=== PATIENT | female | born 1960 | race Asian ===

== ENCOUNTER → 2018-01-30 12:25 | Outpatient (CLI) | payer OTHER, SELFPAY ==
[2018-01-30 13:04] LABS: Add Manual Diff / Slide Review NO; Basophils Percent Auto 0.3 % (0-2); Eosinophils Percent Auto 0.7 % (2-4); Hematocrit 38.4 % (36-46); Hemoglobin 12.6 g/dL (12.0-16.0); Lymphocytes Percent Auto 43.5 % (25-40); Mean Corpuscular HGB Conc 32.9 % (30-36); Mean Corpuscular Hemoglobin 27.6 PG (26-34); Mean Corpuscular Volume 83.8 fL (80-100); Monocytes Percent Auto 6.3 % (3-14); Neutrophils Absolute Auto 3200 /uL (3000-5900); Neutrophils Percent Auto 49.2 % (50-75); Platelet Count 249 X10^3/uL (150-400); Red Blood Cell Count 4.58 X10^6/uL (4.0-5.2); Red Cell Distribution Width 13.3 % (11.6-14.8); White Blood Cell Count 6.5 X10^3/uL (4.5-11.0)
[2018-01-30 13:16] LABS: Hemoglobin A1C% w Est Avg Glu 8.2 % (4.0-6.0)
[2018-01-30 13:27] LABS: Alanine Aminotransferase 57 IU/L (9-52); Albumin 4.4 g/dL (3.5-5.0); Albumin Globulin Ratio 1.2 (1.0-2.8); Alkaline Phosphatase 76 U/L (38-126); Aspartate Aminotransferase 33 IU/L (14-36); BUN Creatinine Ratio 21.7 (6-22); Bilirubin Total 0.5 mg/dL (0.2-1.3); Blood Urea Nitrogen 13 mg/dL (7-17); Calcium 9.2 mg/dL (8.4-10.2); Carbon Dioxide 29 mmol/L (22-32); Chloride 102 mmol/L (98-107); Cholesterol 186 mg/dL (140-199); Estimated Glomerular Filt Rate > 60.0 mL/min (>60); Globulin 3.7 g/dL (1.7-4.1); Glucose 116 mg/dL (70-100); HDL Cholesterol 39 mg/dL (40-60); HEMOLYSIS < 15 (0-50); LDL Cholesterol Calculated 127 mg/dL (<100); Potassium 3.9 mmol/L (3.4-5.1); Sodium 141 mmol/L (137-145); Total Protein 8.1 g/dL (6.3-8.2); Triglycerides 102 mg/dL (35-150)
== END ==
PROVIDERS: PCP Internal Medicine; Visit Provider Internal Medicine
DX: E11.9 Type 2 diabetes mellitus without complications (principal); E78.00 Pure hypercholesterolemia, unspecified
CPT/HCPCS: 36415; 80053; 80061; 83036; 85025

== ENCOUNTER → 2018-02-06 09:31 | Outpatient (CLI) | payer OTHER, SELFPAY ==
--- NOTE | 2018-02-06 | DI.ECHO.S_ITS ---
[place] [facility] +---------+ : : [address] : : : : [id number] : : : : Phone: [phone]+ Echocardiogram Report + + :Name: DENISE GOMEZ Study Date: 02/06/2018 Height: 64 in : :[facility] Exam Location: IS Weight: 160 lb : : Gender: Female BSA: 1.8 m2 : :: 1960 Age: 57 yrs BP: 158/75 mmHg: :Reason For Study: AORTIC STENOSIS : : Performed By: Ephraim Nation : :Referring: PRABHU URIAS : + + Interpretation Summary The left ventricle is normal in size. The ejection fraction is estimated to be 60-65%. There has been no significant change in LV EF since the previous study. The right ventricle is normal in size and function. The aortic valve is mildly calcified. Leaflet mobility is mild to moderately reduced. The peak aortic velocity is 2.78 m/sec. The peak aortic velocity on the previous exam was 2.7 m/sec. The aortic valve mean gradient is 19 mmHg. The aortic valve area is 1.3 centimeters squared by planimetry. There is mild to moderate aortic stenosis. There is mild aortic regurgitation. Compared to the prior echo study, there has been no change in the severity of aortic regurgitation. Procedure: A two-dimensional transthoracic echocardiogram with color flow and Doppler was performed. The study quality was technically adequate. Comparison is made with the echocardiogram of 03/21/17. The patient was in normal sinus rhythm during the exam. Left Ventricle: The left ventricle is normal in size. There is normal left ventricular wall thickness. There is no thrombus. The ejection fraction is estimated to be 60-65%. There has been no significant change since the previous study. There are no focal wall motion abnormalities. MV E/A: 0.90 Med Peak E' Viral: 5.5 cm/sec E/E' med: 16.3. Right Ventricle: The right ventricle is normal in size and function. Atria: Both atria are normal in size. Both atria have remained unchanged in size since the prior echo exam. The interatrial septum is intact with no evidence for an atrial septal defect. Mitral Valve: There is mild to moderate mitral annular calcification. No significant mitral valve stenosis. There is trace mitral regurgitation. Aortic Valve: The aortic valve is trileaflet. The aortic valve is mildly calcified. Leaflet mobility is mild to moderately reduced. The peak aortic velocity is 2.78 m/sec. The aortic valve mean gradient is 19 mmHg. The calculated aortic valve area is 1.2 cm2. The aortic valve area is 1.3 centimeters squared by planimetry. There is mild to moderate aortic stenosis. The peak aortic velocity on the previous exam was 2.7 m/sec. There has been no significant change since the previous study. There is mild aortic regurgitation. Compared to the prior echo study, there has been no change in the severity of aortic regurgitation. Tricuspid Valve: The tricuspid valve is normal in structure and function. There is a trace or physiologic amount of tricuspid regurgitation. Pulmonary artery pressures cannot be estimated because of the lack of a measurable TR jet velocity. Pulmonic Valve: The pulmonic valve is normal in structure and function. There is trace pulmonic regurgitation. Great Vessels: The aortic root is normal size. The ascending aorta is mildly enlarged. The pulmonary artery is normal size. The IVC is of normal diameter and collapses greater than 50% with a sniff. This suggests a low right atrial pressure of 3 mm Hg. Pericardium/ Pleura There is no pericardial effusion. There is no pleural effusion. MMode/2D Measurements & Calculations LVIDd: 4.0 cm LVOT diam: 2.0 cm LVIDs: 2.8 cm Ao root diam: 2.7 cm FS: 31.3 % Aortic Jxn: 2.1 cm EPSS: 0.36 cm asc Aorta Diam: 3.6 cm IVSd: 0.86 cm Ao Arch Diam (Prox Trans): 2.4 cm LVPWd: 0.85 cm LV agee. diameter/BSA (cm/m^2): 2.2 LV sys. diameter/BSA (cm/m^2): 1.5 LA dimension: 3.9 cm RA long axis: 4.3 cm LA A2 area: 16.8 cm2 RA area: 12.8 cm2 LA A4 area: 19.5 cm2 RA vol: 32.3 ml LA length (vol): 5.0 cm RA : 18.2 ml/m2 LA vol: 55.3 ml IVC diam: 1.5 cm LA vol index: 31.1 ml/m2 SUKHJINDER (plan): 1.3 cm2 Doppler Measurements & Calculations Ao V2 max: 278.4 cm/sec LVOT Max Viral: 88.4 cm/sec Ao V2 mean: 211.8 cm/sec LV V1 max P.1 mmHg Ao max P.0 mmHg LV V1 VTI: 23.6 cm Ao mean P.0 mmHg SUKHJNIDER(I,D): 1.2 cm2 Ao V2 VTI: 62.2 cm SUKHJINDER(V,D): 1.00 cm2 sev ratio: 0.38 SUKHJINDER indexed to BSA (cm^2/m^2): 0.67 AI P1/2t: 704.5 msec AI dec slope: 189.3 cm/sec2 MV E max viral: 89.3 cm/sec PA V2 max: 84.7 cm/sec MV A max viral: 99.0 cm/sec PA V2 mean: 57.3 cm/sec MV E/A: 0.90 PA mean P.5 mmHg Med Peak E' Viral: 5.5 cm/sec PA pr(Accel): 26.6 mmHg E/E' med: 16.3 PA Accel Time: 0.11 sec MV dec time: 0.19 sec Pulm A Revs Viral: 22.1 cm/sec Reading Physician:PM
== END ==
PROVIDERS: PCP Internal Medicine; Visit Provider Internal Medicine
DX: I35.0 Nonrheumatic aortic (valve) stenosis (principal)
CPT/HCPCS: 93306

== ENCOUNTER → 2018-03-05 13:49 | Outpatient (CLI) | payer OTHER, SELFPAY ==
--- NOTE | 2018-03-05 14:01 | DI.MG.S_ITS ---
Patient Name: DENISE GOMEZ date: 1960 Sex: F Attending Physician: Boni Indications: Date: 03/05/2018 14:01 At the request of: MILENA VASQUEZ Procedure: MM screening mammo BI BILATERAL DIGITAL SCREENING MAMMOGRAM 3D/2D WITH CAD: 03/05/2018 CLINICAL: Routine screening. Comparison is made to exams dated: 02/03/2017 mammogram, 12/22/2015 mammogram, and 11/05/2014 mammogram - [facility]. There are scattered fibroglandular elements in both breasts. Current study was also evaluated with a Computer Aided Detection (CAD) system. No significant masses, calcifications, or other findings are seen in either breast. IMPRESSION: NEGATIVE There is no mammographic evidence of malignancy. A 1 year screening mammogram is recommended. This exam was interpreted at Station ID: [id number]. NOTE: For mammograms, a report in lay terms will be sent to the patient. Approximately 15% of breast malignancies will not be visualized mammographically. In the management of a palpable breast mass, a negative mammogram must not discourage biopsy of a clinically suspicious lesion. Electronically Signed By: Angel sosa/keyla:03/05/2018 20:01:22 copy to: Bharathi Phillips letter sent: Normal Exam ACR BI-RADS Category 1: Negative 3341F
== END ==
PROVIDERS: PCP Internal Medicine; Visit Provider Family Medicine
DX: Z12.31 Encounter for screening mammogram for malignant neoplasm of breast (principal)
CPT/HCPCS: 77063; 77067

== ENCOUNTER → 2018-05-02 16:43 | Outpatient (CLI) | payer OTHER, SELFPAY | PROVIDERS: PCP Internal Medicine; Visit Provider Internal Medicine | DX: E11.9 Type 2 diabetes mellitus without complications (principal) | CPT/HCPCS: 36415; 83036 ==

== ENCOUNTER → 2018-06-01 08:00 | Outpatient (CLI) | payer OTHER, SELFPAY | PROVIDERS: PCP Internal Medicine | DX: Z23 Encounter for immunization (principal) | CPT/HCPCS: 90471; 90686 ==

== ENCOUNTER → 2018-07-20 07:31 | Outpatient (CLI) | payer OTHER, SELFPAY | PROVIDERS: PCP Internal Medicine; Visit Provider Internal Medicine | DX: E11.9 Type 2 diabetes mellitus without complications (principal) ==

== ENCOUNTER → 2018-09-13 09:32 | Outpatient (CLI) | payer OTHER, SELFPAY ==
--- NOTE | 2018-09-13 15:25 | P.PCN_ITS ---
Cardiac Stress Test Report Referral & Results Date Patient Seen: 09/13/18 Requesting provider: Jerrell Guerrero Indication: Abnormal regular stress test Rest ECG: Unremarkable Procedure Note: Today following both written and verbal informed consent the patient was exercised according to a standard Mario protocol patient went for a total of 9 min 4 sec achieving a maximum heart rate of 160 maximum systolic blood pressure of 158. This is approximately 10.1 METS. Exercise was terminated at this point because of targets were met. Patient was also given Cardiolite through a previously started Hep-Lock IV by the nuclear weapons mechanical specialist approximately 1 minute prior to the cessation of exercise. With exercise patient developed T-wave inversion in lead [address] segment depression that was flat downsloping in the inferior leads in leads V4 through V6 that maximized about 2 mm in recovery these became frankly downsloping ST segment depressions as the depression resolved slowly This was all asymptomatic Functional aerobic impairment rated-20% on the active scale Normal heart rate blood pressure response to exercise Impression: Ischemic changes as above in inferior distribution. Presumably this is why this was repeated and ordered with perfusion imaging as well. Please see perfusion imaging report which will be a separate report for details regarding ischemia Excellent exercise capacity Please note: Actual ECG tracings can be found in the PACS system.
--- NOTE | 2018-09-13 18:16 | DI.NM.S_ITS ---
DATE OF SERVICE: 09/13/2018 PROCEDURE: Exercise perfusion study. INDICATIONS: Exertional shortness of breath, noncritical aortic stenosis, hypertension, hyperlipidemia, diabetes mellitus. RADIOPHARMACEUTICAL: 24.6 mCi technetium-99m Myoview IV was injected at stress and 13.5 mCi technetium-99m Myoview IV was injected at rest. CARDIAC STRESS: Patient underwent exercise perfusion study under the supervision of an attending staff using standard Mario protocol. She walked on Mario protocol for 9 minutes 04 seconds, achieved 98% of target heart rate and functional aerobic impairment -20%. Had shortness of breath. No chest pain. Baseline EKG revealed sinus rhythm. During stress, patient had 2-3 mm horizontal as well as downsloping ST depression in inferior leads and lead V4 to V6, and about 2-mm ST elevation in aVR which lasted more than 3 minutes in recovery. No significant arrhythmias. RAW DATA: There was adequate myocardial uptake. Patient's weight is 149 pounds. GATED STUDY: Stress LV ejection fraction 84% and resting LV ejection fraction 77%. I don't see any obvious wall motion abnormalities. Resting end-diastolic volume is 79 mL. No transient ischemic dilatation. TID ratio is 0.70, which is within normal limits. Lung/heart ratio is 0.37, which is within normal limits. MYOCARDIAL PERFUSION SCAN: Stress supine and resting supine images revealed small-sized mildly decreased perfusion of distal septum and apex which got completely resolved during prone images suggestive of tissue attenuation artifact. Prone images revealed normal myocardial perfusion. CONCLUSION: No obvious ischemia infarction pattern on perfusion scan. Prone images revealed normal myocardial perfusion. There was evidence of tissue attenuation artifact which got resolved during prone images. However, exercise EKG revealed significant ST depression, up to 2-3 mm in inferior leads and leads V4 to V6 and about 2-mm ST elevation in aVR which lasted more than 3 minutes in recovery. Patient had good exercise tolerance. Walked on Mario her call for 9 minutes 04 seconds. Functional aerobic impairment -20%. Achieved 10.1 METs of workload. Patient has abnormal EKG changes. Sometimes balanced ischemia and can cause normal myocardial perfusion. However, left ventricular (LV) function is preserved. No significant wall motion abnormalities. If clinical suspicion for coronary artery disease is high, would recommend obtaining CT coronary angiogram or left heart catheterization. Findings discussed with Dr. Guerrero. Ana Cevallos - YOUTH PASTOR/fn/ doc#: [id number]/job#: [id number] dd: 09/13/2018 17:00:00 dt: 09/13/2018 17:49:00 DICTATING MD/COPIES TO: Davon Adrian MD COPIES MNE: NEAL
== END ==
PROVIDERS: PCP Internal Medicine; Visit Provider Internal Medicine Cardiovascular Disease
DX: R06.02 Shortness of breath (principal); R94.39 Abnormal result of other cardiovascular function study; R06.09 Other forms of dyspnea; I35.0 Nonrheumatic aortic (valve) stenosis; E11.9 Type 2 diabetes mellitus without complications; E78.5 Hyperlipidemia, unspecified; I10 Essential (primary) hypertension
CPT/HCPCS: 78452; 93016; 93017; 93018; A9502

== ENCOUNTER 2018-09-29 16:56 | Emergency (ER) | payer OTHER, SELFPAY ==
[2018-09-29 17:03] VITALS: BP 158/85; PULSE 85; RESP 16; TEMP 36.8; O2SAT 99
--- NOTE | 2018-09-29 17:08 | DI.RAD.S_ITS ---
PROCEDURE: XR SACRUM COCCYX MIN 2V INDICATIONS: slip and fall, tailbone pain TECHNIQUE: 3 views of the sacrum and coccyx acquired. COMPARISON: None. FINDINGS: Bones: Cortical irregularity of the lower sacrum (at S5) concerning for fracture, best seen on lateral view. Moderate degenerative changes of the lumbar spine are present. Mild degenerative changes of the bilateral sacroiliac joints is also seen. Soft tissues: Visualized bowel gas pattern is normal. Prominent bilateral pelvic ossification is most consistent with phleboliths. Vascular calcifications are noted. IMPRESSION: Cortical irregularity of the lower sacrum concerning for fracture. Correlation with point tenderness recommended. Dictated by: Angel Rice M.D. on 09/29/2018 at 17:26 Approved by: Angel Rice M.D. on 09/29/2018 at 17:31
--- NOTE | 2018-09-29 18:45 | PC.NURSE ---
Patient asked for time, stepped away from waiting room. Will return shortly.
--- NOTE | 2018-09-29 19:01 | ED.BACK ---
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 She states she bumped her right elbow a little bit as well but this is not bothersome. She states that she did take ibuprofen which helps somewhat, but her low back just above her tailbone has been quite tender all day. It is painful with walking and especially pulling or transferring patients. Painful with sitting on the area. Better with lying on her side. She states that her leg went out from under her when she fell, however she does not have any pain radiating down her legs. She does not have weakness or numbness in her legs. She has been able to urinate normally. No numbness in the groin. She states that her left gluteal area is a little bit sore but not as sore as the low back. She denies any head contusion, LOC, or other injury Related Data Home Medications Medication Instructions Recorded Confirmed CA PANTOTHENATE/FOLIC ACID/VIT 1 tab PO QDAY #0 01/26/12 (MULTIVITAMIN) FLAXSEED (NEW ENERGY) 1 cap PO QDAY #0 01/26/12 OMEGA-3/DHA/EPA/FISH OIL (Fish Oil 1,000 mg PO QDAY #0 01/26/12 1,000 MG Softgel) [CQ10] QDAY #0 01/26/12 aspirin 81 mg PO QDAY #0 01/26/12 atorvastatin [Lipitor] 80 mg PO HS #0 01/26/12 metformin 1,000 mg PO BID #0 01/26/12 telmisartan [Micardis] 20 mg PO QDAY #0 01/26/12 insulin glargine (U- 100) 100 40 unit SUBCUT HS #0 ml 07/20/18 07/20/18 unit/mL subcutaneous solution liraglutide 0.6 mg/0.1 mL (18 mg/3 1.2 mg SUBCUT DAILY ml 07/20/18 07/20/18 mL) subcutaneous pen injector Previous Rx's Medication Instructions Recorded lidocaine [Lidoderm] 2 patch TOP DAILY #30 each 09/29/18 Allergies Allergy/AdvReac Type Severity Reaction Status Date / Time kiwi Allergy Severe zainab Verified 07/20/18 08:25 hydrocodone [HYDROCODONE] Allergy Mild ITCHING Verified 07/20/18 08:25 AND REDNESS penicillamine [PENICILLAMINE] Allergy Unknown Verified 07/20/18 08:25 Review of Systems <Racheal Torres PA-C - Last Filed: 09/29/18 20:39> Review of Systems ROS Unobtainable: All systems reviewed & are unremarkable except as noted in HPI and below PFSH <Racheal Torres PA-C - Last Filed: 09/29/18 20:39> Medical History CAD (coronary artery disease) (Chronic) Diabetes (Chronic) HTN (hypertension) (Chronic) Hyperlipidemia (Chronic) No pertinent family history (Chronic) Surgical History No pertinent past surgical history (Chronic) Family History Other No pertinent family history Social History Smoking Status: Never smoker Family History Other No pertinent family history Social History Smoking Status: Never smoker Exam <CHELA Estrada Last Filed: 09/29/18 20:39> Narrative Exam Narrative: GENERAL APPEARANCE: Patient lying comfortably on her right side, in no distress PULMONARY: Lungs clear to auscultation bilaterally CV: Regular rhythm regular without murmur, normal S1 and S2, no S3 or S4 MUSCULOSKELETAL: No point tenderness over the lumbar spine. Tender over the inferior sacrum where there may be a small amount of edema compared to Full AROM of trunk. No tenderness over the sacrum. Lower extremity strength 5/5 bilateral hip flexors, knee extensors, foot plantar flexion. Negative modified straight leg raise EXTREMITIES: No edema, no cyanosis Initial Vital Signs Initial Vital Signs: Vital Signs Temperature 98.2 F 09/29/18 17:03 Pulse Rate 85 09/29/18 17:03 Respiratory Rate 16 09/29/18 17:03 Blood Pressure 158/85 H 09/29/18 17:03 Pulse Oximetry 99 09/29/18 17:03 <Bowen Solomon DO - Last Filed: 09/29/18 21:19> Initial Vital Signs Initial Vital Signs: Vital Signs Temperature 98.2 F 09/29/18 17:03 Pulse Rate 85 09/29/18 17:03 Respiratory Rate 16 09/29/18 17:03 Blood Pressure 158/85 H 09/29/18 17:03 Pulse Oximetry 99 09/29/18 17:03 Course <HCELA Estrada Last Filed: 09/29/18 20:39> Orders Ordered: ED Orders 09/29/18 17:08 XR sacrum coccyx min 2V Stat Discontinued Medications Oxycodone/Acetaminophen (Endocet 5/325 Prepack) 1 bottle MISC SEEINSTR ONE Stop: 09/29/18 19:48 Last Admin: 09/29/18 20:07 Dose: 1 bottle Vital Signs - 8 hr 09/29/18 17:03 Temperature 98.2 F Pulse Rate 85 Respiratory Rate 16 Blood Pressure 158/85 H Pulse Oximetry 99 <Bowen Solomon DO - Last Filed: 09/29/18 21:19> Orders Ordered: ED Orders 09/29/18 17:08 XR sacrum coccyx min 2V Stat Discontinued Medications Oxycodone/Acetaminophen (Endocet 5/325 Prepack) 1 bottle MISC SEEINSTR ONE Stop: 09/29/18 19:48 Last Admin: 09/29/18 20:07 Dose: 1 bottle Vital Signs - 8 hr 09/29/18 17:03 Temperature 98.2 F Pulse Rate 85 Respiratory Rate 16 Blood Pressure 158/85 H Pulse Oximetry 99 MDM - Back Pain/Injury <CHELA Estrada Last Filed: 09/29/18 20:39> Imaging Data LS spine: Radiologist's impression: Chart Viewer Diagnostics Hx 09/29/18 17:35 Rice,Edward 09/24/18 16:33 Paliwal,Vidhu 09/14/18 08:26 Paliwal,Vidhu 07/20/18 09:53 07/20/18 09:53 07/20/18 09:28 07/20/18 09:20 07/20/18 09:18 05/02/18 17:52 03/09/18 15:53 Dwayne,Edward 03/09/18 15:49 Rice,Edward 02/06/18 17:20 Paliwal,Vidhu 01/30/18 13:28 01/30/18 13:28 01/30/18 13:16 01/30/18 13:06 11/07/17 14:56 Completed 07/28/17 16:45 Completed 04/25/17 14:43 Completed 12/27/16 12:25 Completed 12/27/16 12:25 Completed 12/27/16 12:25 Completed 10/01/16 12:48 Completed 07/04/16 13:12 Completed 03/01/16 07:35 Completed Ana Cevallos 57, F1960 [facility] ER, ED - Main ED: R02 Back Pain/Injury Search Chart NF - Not included in interaction checking zainab ITCHING AND REDNESS ONSET Today 17:03 Ana Cevallos Anaid 57 F 1960 [place] [address] XRay Report Signed Patient: Ana Cevallos LMR#: [id number] : 1960cct:[id number] Age/Sex: 57 / FDate of Service: 09/29/18 Loc: ED Accession Number: [id number] Procedure: XR sacrum coccyx min 2V Ordering Provider: Olivia Mosquera D.O. PROCEDURE: XR SACRUM COCCYX MIN 2V INDICATIONS: slip and fall, tailbone pain TECHNIQUE: 3 views of the sacrum and coccyx acquired. COMPARISON: None. FINDINGS: Bones: Cortical irregularity of the lower sacrum (at S5) concerning for fracture, best seen on lateral view. Moderate degenerative changes of the lumbar spine are present. Mild degenerative changes of the bilateral sacroiliac joints is also seen. Soft tissues: Visualized bowel gas pattern is normal. Prominent bilateral pelvic ossification is most consistent with phleboliths. Vascular calcifications are noted. IMPRESSION: Cortical irregularity of the lower sacrum concerning for fracture. Correlation with point tenderness recommended. Dictated by: Angel Rice M.D. on 09/29/2018 at 17:26 Approved by: Angel Rice M.D. on 09/29/2018 at 17:31 Discharge Plan Departure Patient Disposition: Home Clinical Impression: Closed sacral fracture Qualifiers: Encounter type: initial encounter Zone of sacrum fracture: unspecified portion of sacrum Qualified Code(s): S32.10XA - Unspecified fracture of sacrum, initial encounter for closed fracture Discharge Date/Time: 09/29/18 20:24 Interventions: ED Discharge Assessment Last Done: 09/29/18 20:20 Instructions: DI for Coccyx Fracture Activity Restrictions/Additional Instructions: I have given you instructions for tailbone fracture since your fracture will be treated similarly. It is a difficult fracture to see on x-ray, but it looks like there is some irregularity on the bone right where you are hurting. Please keep pressure off of the area, and since it is painful to walk and push and pull, please remain off of work for the next few days until you can follow up with her PCP next week and determine best timing for that in whether you will need any other treatment, i.e. physical therapy. Please take ibuprofen every 8 hr as needed since you found that helpful. I have given you a few pain pills (Percocet) to have on hand for the next night or 2 in case you need them to get comfortable. I have also sent a prescription for Lidoderm patch to your pharmacy to try as this may help with pain without making you sleepy. Please use the pad you have in your car that avoid pressure on the tailbone area when you are sitting. Please return right away if you have any new symptoms such as numbness or weakness in your legs or inability to urinate Prescriptions: New lidocaine [Lidoderm] 5 % adhesive patch,medicated 2 patch TOP DAILY Qty: 30 RF: 0 No Action liraglutide [Victoza 3-[place]] 0.6 mg/0.1 mL (18 mg/3 mL) pen injector 1.2 mg SUBCUT DAILY RF: 0 atorvastatin [Lipitor] 20 MG tablet 80 mg PO HS Qty: 0 RF: 0 telmisartan [Micardis] 40 MG tablet 20 mg PO QDAY Qty: 0 RF: 0 metformin 1,000 MG tablet 1,000 mg PO BID Qty: 0 RF: 0 aspirin 81 MG tablet,delayed release (DR/EC) 81 mg PO QDAY Qty: 0 RF: 0 CA PANTOTHENATE/FOLIC ACID/VIT (MULTIVITAMIN) 1 tab PO QDAY Qty: 0 RF: 0 FLAXSEED (NEW ENERGY) 1 cap PO QDAY Qty: 0 RF: 0 OMEGA-3/DHA/EPA/FISH OIL (Fish Oil 1,000 MG Softgel) 1,000 mg PO QDAY Qty: 0 RF: 0 [CQ10] QDAY Qty: 0 RF: 0 insulin glargine [Lantus U-100 Insulin] 100 unit/mL solution 40 unit SUBCUT HS Qty: 0 RF: 0 Referrals: Bharathi Phillips MD [Primary Care Provider] - Stand Alone Forms: Work Release Note <Bowen Solomon DO - Last Filed: 09/29/18 21:19> Cosign ED Attending Cosignature Attestation: I was available for consultation during this patient's emergency department encounter
[2018-09-29] MEDS: OXYCODONE/APAP 5/325 PREPACK 1 BOTTLE MISC (20:07)
== END 2018-09-29 20:24 | disposition home or self-care (01) ==
PROVIDERS: Emergency Provider Internal Medicine; PCP Internal Medicine
DX: S32.10XA Unspecified fracture of sacrum, initial encounter for closed fracture (principal); W01.0XXA Fall on same level from slipping, tripping and stumbling without subsequent striking against object, initial encounter; Y99.0 Civilian activity done for income or pay
CPT/HCPCS: 72220; 99282; 99283

== ENCOUNTER → 2019-02-09 11:26 | Outpatient (CLI) | payer OTHER, SELFPAY ==
[2019-02-09 12:35] LABS: BUN Creatinine Ratio 21.4 (6-22); Blood Urea Nitrogen 15 mg/dL (7-17); Calcium 9.5 mg/dL (8.4-10.2); Carbon Dioxide 29 mmol/L (22-32); Chloride 105 mmol/L (98-107); Cholesterol 121 mg/dL (140-199); Estimated Glomerular Filt Rate > 60.0 mL/min (>60); Glucose 86 mg/dL (70-100); HDL Cholesterol 37 mg/dL (40-60); HEMOLYSIS < 15 (0-50); LDL Cholesterol Calculated 67 mg/dL (<100); Potassium 4.4 mmol/L (3.4-5.1); Sodium 143 mmol/L (137-145); Triglycerides 85 mg/dL (35-150)
== END ==
PROVIDERS: PCP Internal Medicine; Visit Provider Internal Medicine Cardiovascular Disease
DX: E78.5 Hyperlipidemia, unspecified (principal); I10 Essential (primary) hypertension
CPT/HCPCS: 36415; 80048; 80061

== ENCOUNTER → 2019-05-30 18:38 | Outpatient (CLI) | payer OTHER, SELFPAY | PROVIDERS: PCP Internal Medicine | DX: Z23 Encounter for immunization (principal) | CPT/HCPCS: 90471; 90686 ==

== ENCOUNTER → 2019-07-31 09:24 | Outpatient (CLI) | payer OTHER, SELFPAY ==
--- NOTE | 2019-07-31 | DI.MG.S_ITS ---
BILATERAL DIGITAL SCREENING MAMMOGRAM 3D/2D WITH CAD: 07/31/2019 CLINICAL: Routine screening. Comparison is made to exams dated: 03/05/2018 mammogram, 02/03/2017 mammogram, and 12/22/2015 mammogram - [facility]. There are scattered fibroglandular elements in both breasts. Current study was also evaluated with a Computer Aided Detection (CAD) system. No significant masses, calcifications, or other findings are seen in either breast. There has been no significant interval change. IMPRESSION: NEGATIVE There is no mammographic evidence of malignancy. A 1 year screening mammogram is recommended. This exam was interpreted at Station ID: [id number]. NOTE: For mammograms, a report in lay terms will be sent to the patient. Approximately 15% of breast malignancies will not be visualized mammographically. In the management of a palpable breast mass, a negative mammogram must not discourage biopsy of a clinically suspicious lesion. Electronically Signed By: Andres Gonzalez M.D. at/keyla:07/31/2019 16:34:43 copy to: Bharathi Phillips letter sent: Normal Exam ACR BI-RADS Category 1: Negative 3341F
== END ==
PROVIDERS: PCP Internal Medicine; Visit Provider Family Medicine
DX: Z12.31 Encounter for screening mammogram for malignant neoplasm of breast (principal)
CPT/HCPCS: 77063; 77067

== ENCOUNTER → 2019-08-03 09:27 | Outpatient (CLI) | payer OTHER, SELFPAY ==
[2019-08-03 10:34] LABS: Add Manual Diff / Slide Review NO; Basophils Absolute Auto 0 /uL (0-100); Basophils Percent Auto 0.2 % (0-2); Eosinophils Absolute Auto 100 /uL (0-450); Eosinophils Percent Auto 1.2 % (2-4); Hematocrit 38.1 % (36-46); Hemoglobin 12.8 g/dL (12.0-16.0); Lymphocytes Absolute Auto 2000 /uL (1100-4500); Lymphocytes Percent Auto 37.1 % (25-40); Mean Corpuscular HGB Conc 33.6 % (30-36); Mean Corpuscular Hemoglobin 27.3 PG (26-34); Mean Corpuscular Volume 81.5 fL (80-100); Monocytes Absolute Auto 400 /uL (0-900); Monocytes Percent Auto 7.6 % (3-14); Neutrophils Absolute Auto 3000 /uL (1500-7000); Neutrophils Percent Auto 53.9 % (50-75); Platelet Count 266 X10^3/uL (150-400); Red Blood Cell Count 4.68 X10^6/uL (4.0-5.2); White Blood Cell Count 5.5 X10^3/uL (4.5-11.0)
[2019-08-03 10:38] LABS: Alanine Aminotransferase 74 IU/L (<35); Albumin 4.8 g/dL (3.5-5.0); Albumin Globulin Ratio 1.5 (1.0-2.8); Alkaline Phosphatase 64 U/L (38-126); Aspartate Aminotransferase 46 IU/L (14-36); BUN Creatinine Ratio 21.7 (6-22); Bilirubin Total 0.8 mg/dL (0.2-1.3); Blood Urea Nitrogen 13 mg/dL (7-17); Calcium 9.5 mg/dL (8.4-10.2); Carbon Dioxide 27 mmol/L (22-32); Chloride 103 mmol/L (98-107); Cholesterol 119 mg/dL (140-199); Estimated Glomerular Filt Rate > 60.0 mL/min (>60); Globulin 3.1 g/dL (1.7-4.1); Glucose 144 mg/dL (70-100); HDL Cholesterol 36 mg/dL (40-60); HEMOLYSIS < 15 (0-50); LDL Cholesterol Calculated 69 mg/dL (<100); Potassium 4.4 mmol/L (3.4-5.1); Sodium 140 mmol/L (137-145); Total Protein 7.9 g/dL (6.3-8.2); Triglycerides 71 mg/dL (35-150)
[2019-08-03 11:24] LABS: Hemoglobin A1C% w Est Avg Glu 6.9 % (4.0-6.0)
[2019-08-03 12:11] LABS: TSH w/ Reflex to FT4 0.74 uIU/mL (0.47-4.68)
== END ==
PROVIDERS: Family Provider Internal Medicine; PCP Internal Medicine; Visit Provider Family Medicine
DX: Z00.00 Encounter for general adult medical examination without abnormal findings (principal); E11.9 Type 2 diabetes mellitus without complications
CPT/HCPCS: 36415; 80053; 80061; 83036; 84443; 85025

== ENCOUNTER → 2019-08-06 14:35 | Outpatient (CLI) | payer OTHER, SELFPAY ==
[2019-08-06 16:31] LABS: Hep C Virus Ab w/Reflex Quant NEGATIVE s/c (NEGATIVE)
== END ==
PROVIDERS: PCP Internal Medicine; Visit Provider Internal Medicine
DX: K76.0 Fatty (change of) liver, not elsewhere classified (principal)
CPT/HCPCS: 36415; 86803

== ENCOUNTER → 2019-09-04 09:31 | Outpatient (CLI) | payer OTHER, SELFPAY ==
--- NOTE | 2019-09-04 | DI.US.S_ITS ---
PROCEDURE: US ABDOMEN COMPLETE INDICATIONS: UNSPECIFIED ABDOMINAL PAIN TECHNIQUE: Real-time scanning was performed of the abdominal and retroperitoneal organs, with image documentation. COMPARISON: None. FINDINGS: Liver: Liver is normal in size and homogeneous in echotexture. Gallbladder: The gallbladder contains several small mobile stones is seen at the gallbladder fundus and there is no sign of acute cholecystitis or biliary obstruction. Biliary ducts: Intrahepatic bile ducts are non-dilated. Extrahepatic bile duct caliber measures 3.5 mm. Normal is 6-7 mm or less in diameter, or 10 mm or less post-cholecystectomy. Pancreas: Visualized portions of the pancreas are sonographically normal. Spleen: Spleen is normal in size and homogeneous in echotexture. Kidneys: Kidneys are normal in size and echotexture. Right kidney measures 11.6 cm long; left kidney measures 10.0 cm long. No hydronephrosis or nephrolithiasis. No solid masses. Aorta: Visualized aorta is normal in caliber at less than 3 cm. Iliacs: Proximal common iliac arteries are normal in caliber at less than 2.5 cm. IVC: Intrahepatic inferior vena cava is patent. Miscellaneous: No free abdominal fluid. IMPRESSION: Several small mobile gallstones are present within the gallbladder lumen but there is no evidence of biliary obstruction or acute cholecystitis. Dictated by: Harris Viera M.D. on 09/04/2019 at 10:25 Approved by: Harris Viera M.D. on 09/04/2019 at 10:27
== END ==
PROVIDERS: PCP Internal Medicine; Visit Provider Family Medicine
DX: R10.9 Unspecified abdominal pain (principal); K80.20 Calculus of gallbladder without cholecystitis without obstruction
CPT/HCPCS: 76700

== ENCOUNTER → 2020-03-17 11:38 | Outpatient (CLI) | payer OTHER, SELFPAY ==
[2020-03-17 12:26] LABS: Hemoglobin A1C% w Est Avg Glu 7.7 % (4.0-6.0)
[2020-03-17 12:28] LABS: BUN Creatinine Ratio 32.3 (6-22); Blood Urea Nitrogen 20 mg/dL (7-17); Calcium 9.9 mg/dL (8.4-10.2); Carbon Dioxide 26 mmol/L (22-32); Chloride 103 mmol/L (98-107); Estimated Glomerular Filt Rate > 60.0 mL/min (>60); Glucose 133 mg/dL (70-100); HEMOLYSIS < 15 (0-50); Potassium 4.3 mmol/L (3.4-5.1); Sodium 137 mmol/L (137-145)
== END ==
PROVIDERS: PCP Family Medicine; Referring Provider Family Medicine; Visit Provider Family Medicine
DX: E78.5 Hyperlipidemia, unspecified (principal); I10 Essential (primary) hypertension; R73.09 Other abnormal glucose
CPT/HCPCS: 36415; 80048; 83036

== ENCOUNTER → 2020-05-16 10:09 | Outpatient (CLI) | payer OTHER, SELFPAY ==
[2020-05-16 11:05] LABS: COVID19 -Nasal RAPID Negative (Negative)
== END ==
PROVIDERS: PCP Family Medicine; Visit Provider Nurse Practitioner
DX: Z11.59 Encounter for screening for other viral diseases (principal)
CPT/HCPCS: 87635

== ENCOUNTER → 2020-05-20 10:07 | Outpatient (CLI) | payer OTHER, SELFPAY ==
[2020-05-20 11:47] LABS: COVID19 -Nasal RAPID Negative (Negative)
== END ==
PROVIDERS: PCP Family Medicine; Visit Provider Physician Assistant
DX: Z11.59 Encounter for screening for other viral diseases (principal)
CPT/HCPCS: 87635

== ENCOUNTER → 2020-05-22 10:01 | Outpatient (CLI) | payer OTHER, SELFPAY ==
[2020-05-24 09:27] LABS: COVID19 Sendout Not Detected (Not Detect)
== END ==
PROVIDERS: PCP Family Medicine; Visit Provider Physician Assistant
DX: Z11.59 Encounter for screening for other viral diseases (principal)
CPT/HCPCS: 87635

== ENCOUNTER → 2020-05-22 | Outpatient (CLI) | payer OTHER, SELFPAY | PROVIDERS: PCP Family Medicine; Referring Provider Internal Medicine; Visit Provider Internal Medicine | DX: Z23 Encounter for immunization (principal) | CPT/HCPCS: 90471; 90686 ==

== ENCOUNTER → 2020-06-15 11:09 | Outpatient (CLI) | payer OTHER, SELFPAY ==
[2020-06-15 12:37] LABS: Hemoglobin A1C% w Est Avg Glu 8.1 % (4.0-6.0)
[2020-06-15 12:56] LABS: BUN Creatinine Ratio 37.7 (6-22); Blood Urea Nitrogen 20 mg/dL (7-17); Calcium 9.3 mg/dL (8.4-10.2); Carbon Dioxide 28 mmol/L (22-32); Chloride 104 mmol/L (98-107); Estimated Glomerular Filt Rate > 60.0 mL/min (>60); Glucose 113 mg/dL (70-100); HEMOLYSIS < 15 (0-50); Sodium 140 mmol/L (137-145)
== END ==
PROVIDERS: PCP Family Medicine; Referring Provider Family Medicine; Visit Provider Family Medicine
DX: E11.9 Type 2 diabetes mellitus without complications (principal)
CPT/HCPCS: 36415; 80048; 83036

== ENCOUNTER → 2020-08-13 10:58 | Outpatient (CLI) | payer OTHER, SELFPAY ==
--- NOTE | 2020-08-13 11:00 | DI.MG.S_ITS ---
BILATERAL DIGITAL SCREENING MAMMOGRAM 3D/2D WITH CAD: 08/13/2020 CLINICAL: Routine screening. Comparison is made to exams dated: 07/31/2019 mammogram, 03/05/2018 mammogram, and 02/03/2017 mammogram - [facility]. There are scattered fibroglandular elements in both breasts. Current study was also evaluated with a Computer Aided Detection (CAD) system. No significant masses, calcifications, or other findings are seen in either breast. There has been no significant interval change. IMPRESSION: NEGATIVE There is no mammographic evidence of malignancy. A 1 year screening mammogram is recommended. This exam was interpreted at Station ID: [id number]. NOTE: For mammograms, a report in lay terms will be sent to the patient. Approximately 15% of breast malignancies will not be visualized mammographically. In the management of a palpable breast mass, a negative mammogram must not discourage biopsy of a clinically suspicious lesion. Electronically Signed By: Mendel Krishna acr/penrad:08/13/2020 12:43:23 copy to: Bharathi Phillips letter sent: Normal Exam ACR BI-RADS Category 1: Negative [id number]
== END ==
PROVIDERS: PCP Family Medicine; Referring Provider Family Medicine; Visit Provider Family Medicine
DX: Z12.31 Encounter for screening mammogram for malignant neoplasm of breast (principal)
CPT/HCPCS: 77063; 77067

== ENCOUNTER → 2020-09-04 13:01 | Outpatient (CLI) | payer OTHER, SELFPAY ==
[2020-09-04] MEDS: COVID-19 VACC(MODERNA-1)/PF 100 MCG/0.5 ML VIAL IM (13:07)
== END ==
PROVIDERS: PCP Family Medicine; Visit Provider Internal Medicine
DX: Z23 Encounter for immunization (principal)
CPT/HCPCS: 0011A; 91301

== ENCOUNTER → 2020-09-04 13:28 | Outpatient (CLI) | payer OTHER, SELFPAY ==
--- NOTE | 2020-09-04 | DI.ECHO.S_ITS ---
[place] [facility]---------+ [facility] +---------+ : : [address] : : : : [id number] : : : : Phone: [phone]---------+ Echocardiogram Report + + :Name: DENISE GOMEZ Study Date: 09/04/2020 Height: 64 in : :[facility] ReadingLocation: Weight: 150 lb : : Gender: Female BSA: 1.7 m2 : :: 1960 Age: 59 yrs BP: 154/72 mmHg: :Reason For Study: Aortic valve stenosis : :Ordering Physician: Jerrell : :Larry Guerrero Performed By: Valeria Hutchins : + + Interpretation Summary 1) Normal left ventricular size, thickness, wall motion, and systolic function (EF 55-60%). 2) Normal right ventricular size and function. 3) Moderate aortic stenosis present (valve area 0.97cm2, mean gradient 19mmHg, severity ratio 0.31). 4) Compared to the Echo done 02/06/2018, aortic stenosis has progressed from mild-moderate to moderate-severe on this study. Procedure: A two-dimensional transthoracic echocardiogram with color flow and Doppler was performed. The study quality was technically adequate. Comparison is made with the echocardiogram of 02/06/2018. The patient was in normal sinus rhythm during the exam. Left Ventricle: The left ventricle is normal in size. There is normal left ventricular wall thickness. There is no ventricular septal defect visualized. The ejection fraction is estimated to be 55-60%. There are no focal wall motion abnormalities. Right Ventricle: The right ventricle is normal in size and function. Atria: Both atria are normal in size. There is no Doppler evidence for an interatrial shunt. Mitral Valve: There is mild to moderate mitral annular calcification. There is trace mitral regurgitation. Aortic Valve: The aortic valve is moderately calcified. The peak aortic velocity is 2.9 m/sec. The aortic valve mean gradient is 19 mmHg. The peak aortic velocity on the previous exam was 2.8 m/sec. The calculated aortic valve area is 0.97 cm2. The aortic valve area is 1.3 centimeters squared by planimetry. There is mild aortic regurgitation. Tricuspid Valve: The tricuspid valve is not well visualized, but is grossly normal. There is a trace or physiologic amount of tricuspid regurgitation. The right ventricular systolic pressure is estimated to be at least 26 mmHg based on an estimated right atrial pressure of 3 mm Hg. Pulmonic Valve: The pulmonic valve is not well seen, but is grossly normal. There is a trace or physiologic amount of pulmonic regurgitation. Great Vessels: The aortic root is normal size. The ascending aorta is at the upper limits of normal in size. The aortic arch could not be visualized. The IVC is of normal diameter and collapses greater than 50% with a sniff. This suggests a low right atrial pressure of 3 mm Hg. Pericardium/ Pleura There is no pericardial effusion. MMode/2D Measurements & Calculations LVIDd: 4.2 cm LVOT diam: 2.0 cm LVIDs: 2.9 cm Ao root diam: 2.8 cm FS: 30.9 % asc Aorta Diam: 3.6 cm EPSS: 0.23 cm IVSd: 0.99 cm LVPWd: 0.77 cm LV agee. diameter/BSA (cm/m^2): 2.4 LV sys. diameter/BSA (cm/m^2): 1.7 LA A2 area: 17.0 cm2 RA long axis: 3.9 cm LA A4 area: 19.7 cm2 RA area: 12.9 cm2 LA length (vol): 5.2 cm RA vol: 36.0 ml LA vol: 54.6 ml RA : 20.8 ml/m2 LA vol index: 31.6 ml/m2 IVC diam: 1.3 cm RVD1 (basal): 3.2 cm RVD2 (mid): 2.7 cm SUKHJINDER (plan): 1.3 cm2 TAPSE: 2.0 cm Doppler Measurements & Calculations Ao V2 max: 291.5 cm/sec LVOT Max Viral: 85.2 cm/sec Ao V2 mean: 206.6 cm/sec LV V1 max P.9 mmHg Ao max P.0 mmHg LV V1 VTI: 20.9 cm Ao mean P.4 mmHg SUKHJINDER(I,D): 0.97 cm2 Ao V2 VTI: 67.2 cm SUKHJINDER(V,D): 0.91 cm2 sev ratio: 0.31 SUKHJINDER indexed to BSA (cm^2/m^2): 0.56 AI P1/2t: 731.5 msec AI dec slope: 167.4 cm/sec2 MV E max viral: 94.2 cm/sec TR max viral: 238.7 cm/sec MV A max vrial: 107.9 cm/sec TR max P.8 mmHg MV E/A: 0.87 PA V2 max: 91.1 cm/sec Med Peak E' Viral: 5.0 cm/sec PA V2 mean: 63.1 cm/sec E/E' med: 18.9 PA mean P.8 mmHg Lat Peak E' Viral: 6.3 cm/sec PA Accel Time: 0.12 sec E/E' lat: 15.0 E/e' average: 17.0 MV dec time: 0.24 sec MV P1/2t: 70.2 msec MV P1/2t max viral: 95.3 cm/sec SV(LVOT): 65.3 ml MVA(P1/2t): 3.1 cm2 Reading Physician:03:15 PM
== END ==
PROVIDERS: PCP Family Medicine; Referring Provider Family Medicine; Visit Provider Internal Medicine Cardiovascular Disease
DX: I35.2 Nonrheumatic aortic (valve) stenosis with insufficiency (principal)
CPT/HCPCS: 93306

== ENCOUNTER → 2020-09-14 09:12 | Outpatient (CLI) | payer OTHER, SELFPAY ==
[2020-09-14 09:52] LABS: Hemoglobin A1C% w Est Avg Glu 8.6 % (4.0-6.0)
[2020-09-14 10:06] LABS: Alanine Aminotransferase 35 IU/L (<35); Albumin 4.4 g/dL (3.5-5.0); Albumin Globulin Ratio 1.4 (1.0-2.8); Alkaline Phosphatase 70 U/L (38-126); Aspartate Aminotransferase 28 IU/L (14-36); BUN Creatinine Ratio 26.3 (6-22); Bilirubin Total 0.5 mg/dL (0.2-1.3); Blood Urea Nitrogen 15 mg/dL (7-17); Calcium 9.1 mg/dL (8.4-10.2); Carbon Dioxide 29 mmol/L (22-32); Chloride 102 mmol/L (98-107); Cholesterol 142 mg/dL (140-199); Estimated Glomerular Filt Rate > 60.0 mL/min (>60); Globulin 3.2 g/dL (1.7-4.1); Glucose 219 mg/dL (70-100); HDL Cholesterol 35 mg/dL (40-60); HEMOLYSIS < 15 (0-50); LDL Cholesterol Calculated 75 mg/dL (<100); Potassium 4.3 mmol/L (3.4-5.1); Sodium 137 mmol/L (137-145); Total Protein 7.6 g/dL (6.3-8.2); Triglycerides 159 mg/dL (35-150)
== END ==
PROVIDERS: PCP Family Medicine; Referring Provider Family Medicine; Visit Provider Family Medicine
DX: E11.9 Type 2 diabetes mellitus without complications (principal); I10 Essential (primary) hypertension; E78.5 Hyperlipidemia, unspecified
CPT/HCPCS: 36415; 80053; 80061; 83036

== ENCOUNTER → 2020-10-02 14:07 | Outpatient (CLI) | payer OTHER, SELFPAY ==
[2020-10-02] MEDS: COVID-19 VACC #2, MRNA(MOD) 100 MCG/0.5 ML VIAL IM (14:17)
== END ==
PROVIDERS: PCP Family Medicine; Visit Provider Internal Medicine
DX: Z23 Encounter for immunization (principal)
CPT/HCPCS: 0012A; 91301

== ENCOUNTER → 2020-12-14 09:51 | Outpatient (CLI) | payer OTHER, SELFPAY ==
[2020-12-14 10:40] LABS: Hemoglobin A1C% w Est Avg Glu 7.3 % (4.0-6.0)
[2020-12-14 11:10] LABS: Glucose 98 mg/dL (70-100)
== END ==
PROVIDERS: PCP Family Medicine; Referring Provider Family Medicine; Visit Provider Family Medicine
DX: E11.9 Type 2 diabetes mellitus without complications (principal)
CPT/HCPCS: 36415; 82947; 83036

== ENCOUNTER → 2021-05-27 09:12 | Outpatient (CLI) | payer OTHER, SELFPAY | PROVIDERS: PCP Family Medicine; Referring Provider Internal Medicine; Visit Provider Internal Medicine | DX: Z23 Encounter for immunization (principal) | CPT/HCPCS: 90471; 90686 ==

== ENCOUNTER → 2021-06-06 07:22 | Outpatient (CLI) | payer OTHER, SELFPAY ==
[2021-06-06 11:28] LABS: COVID19 - ADMIT (NP swab/PCR) Negative (Negative)
== END ==
PROVIDERS: PCP Family Medicine; Visit Provider Family Medicine
DX: Z20.822 Contact with and (suspected) exposure to COVID-19 (principal)
CPT/HCPCS: U0003

== ENCOUNTER → 2021-06-16 11:30 | Outpatient (CLI) | payer OTHER, SELFPAY ==
[2021-06-16 12:45] LABS: Hemoglobin A1C% w Est Avg Glu 7.4 % (4.0-6.0)
[2021-06-16 12:48] LABS: BUN Creatinine Ratio 21.1 (6-22); Blood Urea Nitrogen 12 mg/dL (7-17); Calcium 9.4 mg/dL (8.4-10.2); Carbon Dioxide 28 mmol/L (22-32); Chloride 103 mmol/L (98-107); Estimated Glomerular Filt Rate > 60.0 mL/min (>60); Glucose 104 mg/dL (70-100); HEMOLYSIS < 15 (0-50); Potassium 4.4 mmol/L (3.4-5.1); Sodium 139 mmol/L (137-145)
[2021-06-16 15:26] LABS: Microalbumin Urine Random 1.9 mg/dL (0-1.6)
[2021-06-16 15:31] LABS: Creatinine Urine Random 64.7 mg/dL; Microalbumi Creatinin Ratio Ur 29.3 ug/mg CR (<30)
== END ==
PROVIDERS: PCP Family Medicine; Referring Provider Family Medicine; Visit Provider Family Medicine
DX: E11.9 Type 2 diabetes mellitus without complications (principal); E78.5 Hyperlipidemia, unspecified; I10 Essential (primary) hypertension
CPT/HCPCS: 36415; 80048; 82043; 82570; 83036

== ENCOUNTER → 2021-06-25 09:41 | Outpatient (CLI) | payer OTHER, SELFPAY ==
[2021-06-25] MEDS: COVID-19 VACC #3, MRNA(MOD) 50 MCG/0.25 ML VIAL IM (09:51)
== END ==
PROVIDERS: PCP Family Medicine; Visit Provider Internal Medicine
DX: Z23 Encounter for immunization (principal)
CPT/HCPCS: 0013A; 91301

== ENCOUNTER → 2021-10-16 10:23 | Outpatient (CLI) | payer OTHER, SELFPAY ==
--- NOTE | 2021-10-16 10:24 | DI.MG.S_ITS ---
BILATERAL DIGITAL SCREENING MAMMOGRAM 3D/2D WITH CAD: 10/16/2021 CLINICAL: Routine screening. Comparison is made to exams dated: 08/13/2020 mammogram, 07/31/2019 mammogram, and 03/05/2018 mammogram - [facility]. There are scattered fibroglandular elements in both breasts. Current study was also evaluated with a Computer Aided Detection (CAD) system. No significant masses, calcifications, or other findings are seen in either breast. There has been no significant interval change. IMPRESSION: NEGATIVE There is no mammographic evidence of malignancy. A 1 year screening mammogram is recommended. This exam was interpreted at Station ID: [id number]. NOTE: For mammograms, a report in lay terms will be sent to the patient. Approximately 15% of breast malignancies will not be visualized mammographically. In the management of a palpable breast mass, a negative mammogram must not discourage biopsy of a clinically suspicious lesion. Electronically Signed By: Nathaly vides/keyla:10/18/2021 13:48:57 copy to: Bharathi Phillips letter sent: Normal Exam ACR BI-RADS Category 1: Negative [id number]
== END ==
PROVIDERS: PCP Family Medicine; Referring Provider Family Medicine; Visit Provider Family Medicine
DX: Z12.31 Encounter for screening mammogram for malignant neoplasm of breast (principal)
CPT/HCPCS: 77063; 77067

== ENCOUNTER → 2021-12-16 07:36 | Outpatient (CLI) | payer OTHER, SELFPAY ==
[2021-12-16 08:22] LABS: Add Manual Diff / Slide Review NO; Basophils Absolute Auto 0 /uL (0-100); Basophils Percent Auto 0.3 % (0-2); Eosinophils Absolute Auto 100 /uL (0-450); Eosinophils Percent Auto 1.5 % (2-4); Hematocrit 39.7 % (36-46); Hemoglobin 12.9 g/dL (12.0-16.0); Lymphocytes Absolute Auto 2300 /uL (1100-4500); Lymphocytes Percent Auto 34.8 % (25-40); Mean Corpuscular HGB Conc 32.6 % (30-36); Mean Corpuscular Hemoglobin 27.1 PG (26-34); Mean Corpuscular Volume 83.1 fL (80-100); Monocytes Absolute Auto 500 /uL (0-900); Monocytes Percent Auto 7.4 % (3-14); Neutrophils Absolute Auto 3800 /uL (1500-7000); Platelet Count 241 X10^3/uL (150-400); Red Blood Cell Count 4.78 X10^6/uL (4.0-5.2); Red Cell Distribution Width 13.8 % (11.6-14.8); White Blood Cell Count 6.7 X10^3/uL (4.5-11.0)
[2021-12-16 08:31] LABS: Hemoglobin A1C% w Est Avg Glu 7.8 % (4.0-6.0)
[2021-12-16 08:40] LABS: Alanine Aminotransferase 35 IU/L (<35); Albumin 4.4 g/dL (3.5-5.0); Albumin Globulin Ratio 1.5 (1.0-2.8); Alkaline Phosphatase 69 U/L (38-126); Aspartate Aminotransferase 29 IU/L (14-36); BUN Creatinine Ratio 23.4 (6-22); Bilirubin Total 0.5 mg/dL (0.2-1.3); Blood Urea Nitrogen 15 mg/dL (7-17); Carbon Dioxide 26 mmol/L (22-32); Chloride 105 mmol/L (98-107); Cholesterol 126 mg/dL (140-199); Estimated Glomerular Filt Rate > 60 mL/min (>60); Globulin 2.9 g/dL (1.7-4.1); Glucose 140 mg/dL (70-100); HDL Cholesterol 43 mg/dL (40-60); HEMOLYSIS < 15 (0-50); LDL Cholesterol Calculated 63 mg/dL (<100); Potassium 4.2 mmol/L (3.4-5.1); Sodium 141 mmol/L (137-145); Total Protein 7.3 g/dL (6.3-8.2); Triglycerides 99 mg/dL (35-150)
[2021-12-16 09:05] LABS: Thyroid Stimulating Hormone 1.29 uIU/mL (0.47-4.68)
== END ==
PROVIDERS: PCP Family Medicine; Referring Provider Family Medicine; Visit Provider Family Medicine
DX: E11.9 Type 2 diabetes mellitus without complications (principal); E78.5 Hyperlipidemia, unspecified; I10 Essential (primary) hypertension
CPT/HCPCS: 36415; 80053; 80061; 83036; 84443; 85025

== ENCOUNTER → 2022-02-25 09:05 | Outpatient (CLI) | payer OTHER, SELFPAY ==
--- NOTE | 2022-02-25 09:07 | DI.RAD.S_ITS ---
PROCEDURE: XR HAND LT MIN 3V INDICATIONS: hand pain TECHNIQUE: 3 views of the hand(s) acquired. COMPARISON: None. FINDINGS: Bones: No fractures or dislocations. Carpal bones are normally aligned. No suspicious bony lesions. No osseous erosions. No periarticular osteopenia. Soft tissues: No suspicious soft tissue calcifications. IMPRESSION: No fracture. No osseous lesion. If symptoms and/or clinical suspicion for pathology persists, further assessment with repeat radiographs (7-10 days) or advanced imaging (e.g. CT, MRI or bone scan) should be considered. Dictated by: Jacquelin Omer MD, PhD on 02/25/2022 at 15:17 Approved by: Jacquelin Omer MD, PhD on 02/25/2022 at 15:17
--- NOTE | 2022-02-25 09:07 | DI.RAD.S_ITS ---
PROCEDURE: XR HAND RT MIN 3V INDICATIONS: hand pain TECHNIQUE: 3 views of the hand(s) acquired. COMPARISON: None. FINDINGS: Bones: No fractures or dislocations. Carpal bones are normally aligned. No suspicious bony lesions. No osseous erosions. No periarticular osteopenia. Soft tissues: No suspicious soft tissue calcifications. IMPRESSION: No fracture. No osseous lesion. If symptoms and/or clinical suspicion for pathology persists, further assessment with repeat radiographs (7-10 days) or advanced imaging (e.g. CT, MRI or bone scan) should be considered. Dictated by: Jacquelin Omer MD, PhD on 02/25/2022 at 15:06 Approved by: Jacquelin Omer MD, PhD on 02/25/2022 at 15:11
[2022-02-25 09:45] LABS: C-Reactive Protein Quant < 0.5 mg/dL (<1.0)
[2022-02-25 09:47] LABS: Rheumatoid Factor < 8.6 IU/mL (<12.0)
[2022-02-25 10:17] LABS: Erythrocyte Sedimentation Rate 7 MM/HR (0-20)
[2022-02-28 21:41] LABS: CCP Antibodies IgG/IgA 2 units (0-19)
== END ==
PROVIDERS: PCP Family Medicine; Referring Provider Family Medicine; Visit Provider Family Medicine
DX: M79.641 Pain in right hand (principal); M79.642 Pain in left hand; M79.89 Other specified soft tissue disorders
CPT/HCPCS: 36415; 73130; 85651; 86140; 86200; 86430

== ENCOUNTER → 2022-05-17 07:56 | Outpatient (CLI) | payer OTHER, SELFPAY | PROVIDERS: PCP Family Medicine; Referring Provider Internal Medicine; Visit Provider Internal Medicine | DX: Z23 Encounter for immunization (principal) | CPT/HCPCS: 90471; 90686 ==

== ENCOUNTER → 2022-06-15 09:38 | Outpatient (CLI) | payer OTHER, SELFPAY ==
[2022-06-15 10:35] LABS: Hemoglobin A1C% w Est Avg Glu 7.6 % (4.0-6.0)
[2022-06-15 10:54] LABS: Creatinine Urine Random 43.7 mg/dL
[2022-06-15 10:59] LABS: Microalbumi Creatinin Ratio Ur 109.8 ug/mg CR (<30); Microalbumin Urine Random 4.8 mg/dL (0-1.6)
== END ==
PROVIDERS: PCP Family Medicine; Referring Provider Family Medicine; Visit Provider Family Medicine
DX: E11.9 Type 2 diabetes mellitus without complications (principal)
CPT/HCPCS: 36415; 82043; 82570; 83036

== ENCOUNTER → 2022-07-13 07:30 | Outpatient (CLI) | payer OTHER, SELFPAY ==
--- NOTE | 2022-07-13 07:32 | DI.US.S_ITS ---
PROCEDURE: US ABDOMEN COMPLETE INDICATIONS: PAIN TECHNIQUE: Real-time scanning was performed of the abdominal and retroperitoneal organs, with image documentation. COMPARISON: [facility], US, US ABDOMEN COMPLETE, 09/04/2019, 9:45. FINDINGS: Liver: Liver is normal in size and homogeneous in echotexture. Gallbladder: Small mobile stones are present. No wall thickening or sonographic Perez sign. Biliary ducts: Intrahepatic bile ducts are non-dilated. Extrahepatic bile duct caliber measures 6 mm. Normal is 6-7 mm or less in diameter, or 10 mm or less post-cholecystectomy. Pancreas: Visualized portions of the pancreas are sonographically normal. Spleen: Spleen is normal in size and homogeneous in echotexture. Kidneys: Kidneys are normal in size and echotexture. Right kidney measures 11.7 cm long; left kidney measures 12.1 cm long. No hydronephrosis or nephrolithiasis. No solid masses. Aorta: Visualized aorta is normal in caliber at less than 3 cm. Iliacs: Proximal common iliac arteries are normal in caliber at less than 2.5 cm. IVC: Intrahepatic inferior vena cava is patent. IMPRESSION: 1. Cholelithiasis without evidence of acute cholecystitis. 2. No biliary ductal dilation demonstrated. Dictated by: Daljit Baker M.D. on 07/13/2022 at 11:30 Approved by: Daljit Baker M.D. on 07/13/2022 at 11:32
== END ==
PROVIDERS: PCP Family Medicine; Referring Provider Family Medicine; Visit Provider Family Medicine
DX: R10.11 Right upper quadrant pain (principal); K80.20 Calculus of gallbladder without cholecystitis without obstruction
CPT/HCPCS: 76700

== ENCOUNTER → 2022-07-24 14:04 | Outpatient (CLI) | payer OTHER, SELFPAY ==
[2022-07-24 14:59] LABS: Influenza A - CEPHEID Flu A NEGATIVE (NEGATIVE); Influenza B - CEPHEID Flu B NEGATIVE (NEGATIVE); Respiratory Syncytial Virus POSITIVE (Negative)
[2022-07-24 15:04] LABS: COVID-19 CEPHEID 4-PLEX PCR Negative (Negative)
== END ==
PROVIDERS: PCP Family Medicine; Visit Provider Physician Assistant
DX: R05.9 Cough, unspecified (principal); Z20.822 Contact with and (suspected) exposure to COVID-19
CPT/HCPCS: 0241U

== ENCOUNTER 2022-10-28 07:10 | Day surgery (SDC) | payer OTHER, SELFPAY ==
[2022-10-28 07:51] VITALS: BP 177/81; PULSE 81; RESP 18; TEMP 36.4; O2SAT 99; BMI 26.6
[2022-10-28] MEDS: LACTATED RINGERS 1,000 ML 42 ML IV (07:51)
--- NOTE | 2022-10-28 08:53 | P.HP_ITS ---
History of Present Illness History of Present Illness Chief complaint: [facility] [place] Narrative: MsSg García presents today for screening colonoscopy. Her last colonoscopy was 10 years ago. She has no family history of colon cancer her sister has breast cancer and her 2 brothers thyroid cancer. She has no concerning symptoms except that 3 years ago she had an episode of abdominal pain that might have been gallstone related. She never had her gallbladder removed because the pain went away. She does talk about how she has very small caliber stools and may have once a day or once every other day and occasionally feels with constipation. She does take a stool softener on these occasions and has not ever tried fiber supplement. Patient History Medical History (Updated 10/28/22 @ 08:55 by Joyce Crowe MD) Biliary colic CAD (coronary artery disease) Diabetes Elevated hemoglobin A1c Fracture of coccyx (09/29/18) Gallstones Hand pain, left Hand pain, right Heart murmur HTN (hypertension) Hyperlipidemia No pertinent family history Viral URI with cough Surgical History No pertinent past surgical history Family & Social History Family History Mother Hypertension Heart disease Diabetes mellitus Brother Hypertension Heart disease Diabetes mellitus Thyroid cancer Sister Hypertension Heart disease Diabetes mellitus Grandmother Stroke Other No pertinent family history Social History: household members spouse Tobacco & Substance use: Tobacco type cigarettes Smoking Status Never smoker alcohol intake never Substance Use Type does not use Meds Home Medications and Allergies Home Medications Medication Instructions Recorded Confirmed Type [CQ10] See Rx Instructions .Route 01/26/12 10/28/22 History .COMPLEX ##0 aspirin 81 mg tablet,delayed 81 mg PO QDAY ##0 01/26/12 10/28/22 History release cholecalciferol (vitamin D3) 100 4,000 unit PO DAILY 10/15/19 10/28/22 History mcg (4,000 unit) capsule krill oil 500 mg capsule See Rx Instructions .Route .COMPLEX 10/15/19 10/28/22 History rosuvastatin 40 mg tablet (Crestor) 40 mg PO DAILY 10/15/19 10/28/22 History vitamin B complex (B 1 tab PO DAILY 10/15/19 10/28/22 History Complex-Vitamin B12 tablet) Dexcom G6 Television Audio Engineer (blood-glucose #1 ea 09/17/21 07/24/22 Rx meter,continuous) blood-glucose transmitter (Dexcom #1 ea 09/17/21 07/24/22 Rx G6 Transmitter device) triamcinolone acetonide 0.1 % See Rx Instructions topical BID 12/16/21 10/28/22 Rx topical cream #80 grams Ludmila Fine pen needles #100 ea 01/11/22 07/24/22 Rx telmisartan 20 mg tablet See Rx Instructions .Route 07/05/22 10/28/22 Rx .COMPLEX #90 tabs insulin glargine 100 unit/mL (3 See Rx Instructions .Route 08/10/22 10/28/22 Rx mL) subcutaneous pen (Basaglar .COMPLEX #15 mL KwikPen U-100 Insulin) metformin 1,000 mg tablet 1,000 mg PO BID #180 tabs 09/01/22 10/28/22 Rx empagliflozin 25 mg tablet See Rx Instructions .Route 09/09/22 10/28/22 Rx (Jardiance) .COMPLEX #90 tabs sodium,potassium,mag sulfates 17.5 See Rx Instructions PO .COMPLEX 09/22/22 10/28/22 Rx gram-3.13 gram-1.6 gram oral soln #354 mL (Suprep Bowel Prep Kit) blood-glucose sensor (Dexcom G6 #9 ea 10/03/22 Rx Sensor device) Allergies Allergy/AdvReac Type Severity Reaction Status Date / Time kiwi Allergy Severe zainab Verified 10/28/22 07:33 dulaglutide [From Trulicity] Allergy Intermediate ITCHING Verified 10/28/22 07:37 hydrocodone [HYDROCODONE] Allergy Mild ITCHING Verified 10/28/22 07:33 AND REDNESS penicillamine [PENICILLAMINE] Allergy Unknown Verified 10/28/22 07:33 Exam Vital Signs (past 8 hours): - 10/28/22 07:51 Temperature 97.5 F L Pulse Rate 81 Respiratory Rate 18 Blood Pressure 177/81 H Pulse Oximetry 99 Oxygen Delivery Method Room Air Oxygen Delivery Method Room Air Const General: cooperative, healthy appearing and comfortable HENMS Head: normal to inspection Resp Effort & Inspection: normal respiratory effort and able to speak in complete sentences Cardio Pulses: radial pulses present GI Palpation: soft and No tender Assessment & Plan Assessment and plan (1) Screening for colon cancer: Status: Acute Assessment & Plan narrative: She presents today for colon cancer screening. She understands the risks benefits and alternatives of a colonoscopy including but not limited to perforation of the colon and incomplete exam. She would like to proceed. Time Spent With Patient Critical Care time: I spent a total of [] minutes of critical care time on this patient's care today; this time is exclusive of procedural time.
[2022-10-28 09:43] VITALS: BP 113/59; PULSE 62; RESP 17; TEMP 36.4; O2SAT 100
[2022-10-28 09:48] VITALS: BP 113/56; PULSE 62; RESP 15; O2SAT 100
--- NOTE | 2022-10-28 09:51 | PM.OP.COLON ---
Procedure & Clinicians Study performed: Colonoscopy Same procedure as scheduled: Yes Indications: Average risk Surgeon: Joyce Crowe Procedure Notes Procedure in detail: Patient was taken to the endoscopy suite and placed in a left lateral decubitus position. A time-out was performed. With the help of anesthesiologist Dr. Su, conscious sedation was performed. A digital rectal exam revealed no masses or strictures. The colonoscope was introduced into the anal canal and advanced through to the cecum. Some pressure and use of a scope stiffener was required to reach the cecal area. A photograph was taken of the ileocecal valve and the appendiceal orifice. Next the scope was withdrawn slowly over 17 minutes. No polyps were seen and no biopsies taken. The scope was then retroflexed and a photograph was taken of the hemorrhoidal piles. Patient tolerated the procedure well and went in good condition to the postoperative care unit. Specimen(s): none sent Complications: none Post-procedure Recommendations: Colonoscopy in 10 years Plan for aftercare: I do recommend fiber supplementation. I recommend the powder form of any brand name available [id number]. This should be taken with plenty of water and I would recommend trying twice daily. The reason for this is the symptoms of intermittent constipation that the patient described to me. Please see history of present illness for further details on the symptoms.
[2022-10-28 09:58] VITALS: BP 124/64; PULSE 59; RESP 13; O2SAT 100
== END 2022-10-28 10:28 | disposition home or self-care (01) ==
PROVIDERS: PCP Family Medicine; Referring Provider Surgery; Visit Provider Surgery
PROC: 0DJD8ZZ Inspection of Lower Intestinal Tract, Via Natural or Artificial Opening Endoscopic (ICD-10-PCS; CPT 45378; principal; 2022-10-28 08:30)
DX: Z12.11 Encounter for screening for malignant neoplasm of colon (principal); K64.8 Other hemorrhoids
CPT/HCPCS: 45378; J2250; J2704; J3010

== ENCOUNTER → 2022-11-30 15:50 | Outpatient (CLI) | payer OTHER, SELFPAY ==
[2022-11-30 17:57] LABS: Add Manual Diff / Slide Review NO; Basophils Absolute Auto 0 /uL (0-100); Basophils Percent Auto 0.4 % (0-2); Eosinophils Absolute Auto 200 /uL (0-450); Eosinophils Percent Auto 2.1 % (2-4); Hematocrit 38.9 % (36-46); Hemoglobin 12.7 g/dL (12.0-16.0); Lymphocytes Absolute Auto 3000 /uL (1100-4500); Mean Corpuscular HGB Conc 32.6 % (30-36); Mean Corpuscular Hemoglobin 26.5 PG (26-34); Mean Corpuscular Volume 81.5 fL (80-100); Monocytes Absolute Auto 500 /uL (0-900); Neutrophils Absolute Auto 4200 /uL (1500-7000); Neutrophils Percent Auto 53.5 % (50-75); Platelet Count 236 X10^3/uL (150-400); Red Blood Cell Count 4.78 X10^6/uL (4.0-5.2); Red Cell Distribution Width 13.8 % (11.6-14.8); White Blood Cell Count 7.9 X10^3/uL (4.5-11.0)
[2022-11-30 18:39] LABS: Alanine Aminotransferase 26 IU/L (<35); Albumin 4.3 g/dL (3.5-5.0); Albumin Globulin Ratio 1.4 (1.0-2.8); Alkaline Phosphatase 74 U/L (38-126); Aspartate Aminotransferase 28 IU/L (14-36); BUN Creatinine Ratio 42.3 (6-22); Bilirubin Total 0.4 mg/dL (0.2-1.3); Blood Urea Nitrogen 22 mg/dL (7-17); Calcium 9.4 mg/dL (8.4-10.2); Carbon Dioxide 24 mmol/L (22-32); Chloride 102 mmol/L (98-107); Cholesterol 155 mg/dL (140-199); Estimated Glomerular Filt Rate > 60 mL/min (>60); Globulin 3.1 g/dL (1.7-4.1); Glucose 79 mg/dL (80-110); HDL Cholesterol 39 mg/dL (40-60); HEMOLYSIS < 15 (0-50); LDL Cholesterol Calculated 60 mg/dL (<100); Potassium 4.2 mmol/L (3.4-5.1); Sodium 138 mmol/L (137-145); Total Protein 7.4 g/dL (6.3-8.2); Triglycerides 282 mg/dL (35-150)
[2022-12-01 04:10] LABS: x Labcorp Estim. Avg Glu (eAG) 180 mg/dL (.); x Labcorp Hemoglobin A1c 7.9 % (4.8-5.6)
== END ==
PROVIDERS: PCP Family Medicine; Referring Provider Family Medicine; Visit Provider Family Medicine
DX: E11.9 Type 2 diabetes mellitus without complications (principal); E78.5 Hyperlipidemia, unspecified; I10 Essential (primary) hypertension
CPT/HCPCS: 36415; 80053; 80061; 83036; 85025

== ENCOUNTER → 2022-12-01 10:19 | Outpatient (CLI) | payer OTHER, SELFPAY ==
[2022-12-01 14:10] LABS: Microalbumin Urine Random 3.8 mg/dL (0-1.6)
[2022-12-01 14:12] LABS: Creatinine Urine Random 37.2 mg/dL; Microalbumi Creatinin Ratio Ur 102.1 ug/mg CR (<30)
== END ==
PROVIDERS: PCP Family Medicine; Visit Provider Family Medicine
DX: E11.9 Type 2 diabetes mellitus without complications (principal); I10 Essential (primary) hypertension
CPT/HCPCS: 82043; 82570

== ENCOUNTER → 2023-01-05 09:43 | Outpatient (CLI) | payer OTHER, SELFPAY ==
--- NOTE | 2023-01-05 10:00 | DI.MRI.S_ITS ---
PROCEDURE: MR ANGIO HEAD WO CON INDICATIONS: falls loss of hand strength TECHNIQUE: Noncontrast axial 3-D [id number] MR angiogram, with 3-dimensional maximum intensity projection (MIP) reformats of the internal carotid arteries and posterior circulation then performed. COMPARISON: None. FINDINGS: Image quality: Diagnostic Anterior circulation: Intracranial internal carotid arteries demonstrate normal size and intraluminal flow signal. The flow within the paired anterior cerebral arteries is normal and symmetric. The flow within the middle cerebral arteries is normal and symmetric. The anterior communicating artery is seen. No stenoses, occlusions, or aneurysms. Posterior circulation: Visualized portions of the vertebral arteries demonstrate normal caliber, and join to form a normal appearing basilar artery. The flow within the posterior cerebral arteries is normal and symmetric. No stenoses, occlusions, or aneurysms. IMPRESSION: Normal brain MR angiogram. Dictated by: Vinayak Hidalgo M.D. on 01/05/2023 at 12:45 Approved by: Vinayak Hidalgo M.D. on 01/05/2023 at 12:46
== END ==
PROVIDERS: PCP Family Medicine; Referring Provider Family Medicine; Visit Provider Family Medicine
DX: R26.89 Other abnormalities of gait and mobility (principal); R42 Dizziness and giddiness; W19.XXXA Unspecified fall, initial encounter; R29.898 Other symptoms and signs involving the musculoskeletal system; R53.1 Weakness
CPT/HCPCS: 70544

== ENCOUNTER → 2023-02-22 07:38 | Outpatient (CLI) | payer OTHER, SELFPAY ==
--- NOTE | 2023-02-22 | DI.ECHO.S_ITS ---
[place] +---------+ [facility] +---------+ : : [address] : : : : [address] : : : : Phone: [phone]---------+ Echocardiogram Report + + :Name: DENISE GOMEZ Study Date: 02/22/2023 Height: 64 in : :[facility] ReadingLocation: Weight: 154 lb : : Gender: Female BSA: 1.8 m2 : :: 1960 Age: 62 yrs BP: 124/64 mmHg: :Reason For Study: AORTIC STENOSIS : :Ordering Physician: PEDRO, : :MILENA Performed By: Ángela Rasheed : :Referring: MILENA VASQUEZ : + + Interpretation Summary 1) Normal left ventricular thickness, size, wall motion, and systolic function (EF 60-65%). 2) Normal right ventricular size and function. 3) There is moderate aortic stenosis (0.96cm2, mean gradient 22mmHg, severity ratio 0.3). 4) There is mild aortic regurgitation. 5) Compared to the Echo done 09/04/2020, no significant change. Procedure: A two-dimensional transthoracic echocardiogram with color flow and Doppler was performed. The study quality was technically adequate. Comparison is made with the echocardiogram of 09/04/2020. The patient was in sinus rhythm with heart rates between 66-74 bpm during the exam. Left Ventricle: The left ventricle is normal in size and wall thickness. The ejection fraction is estimated to be 60-65%. Left ventricular systolic function is normal. Right Ventricle: The right ventricle is normal in size and function. Atria: The left atrial size is normal. Right atrial size is normal. There is no Doppler evidence for an interatrial shunt. Mitral Valve: There is mild to moderate mitral annular calcification. The mitral valve leaflets are mildly calcified. There is trace mitral regurgitation. Aortic Valve: The aortic valve is moderately calcified. There is mild to moderately reduced leaflet mobility. There is moderate aortic stenosis. The peak aortic velocity is 3.0 m/sec. The aortic valve mean gradient is 22 mmHg. The calculated aortic valve area is 0.87 cm2. There is mild aortic regurgitation. Tricuspid Valve: The tricuspid valve is normal in structure and function. No tricuspid regurgitation. Pulmonary artery pressures cannot be estimated because of the lack of a measurable TR jet velocity. Pulmonic Valve: The pulmonic valve leaflets are thin and pliable; valve motion is normal. There is trace pulmonic regurgitation. Great Vessels: The aortic root is normal size. The dimensions of the ascending aorta are normal. The IVC is of normal diameter and collapses greater than 50% with a sniff. This suggests a low right atrial pressure of 3 mm Hg. Pericardium/ Pleura There is no pericardial effusion. There is no pleural effusion. MMode/2D Measurements & Calculations LVIDd: 4.2 cm LVOT diam: 2.0 cm LVIDs: 2.8 cm Ao root diam: 2.6 cm FS: 34.3 % asc Aorta Diam: 3.5 cm IVSd: 0.84 cm Ao Arch Diam (Prox Trans): 2.2 cm LVPWd: 0.94 cm LV agee. diameter/BSA (cm/m^2): 2.4 LV sys. diameter/BSA (cm/m^2): 1.6 LA A2 area: 16.6 cm2 RA long axis: 4.5 cm LA A4 area: 15.5 cm2 RA area: 11.2 cm2 LA length (vol): 4.7 cm RA vol: 23.5 ml LA vol: 46.5 ml RA : 13.4 ml/m2 LA vol index: 26.5 ml/m2 IVC diam: 1.0 cm RVD1 (basal): 3.2 cm RVD2 (mid): 3.3 cm TAPSE: 2.1 cm Doppler Measurements & Calculations Ao V2 max: 296.1 cm/sec LVOT Max Viral: 84.7 cm/sec Ao V2 mean: 226.1 cm/sec LV V1 max P.9 mmHg Ao max P.3 mmHg LV V1 VTI: 21.9 cm Ao mean P.1 mmHg SUKHJINDER(I,D): 0.96 cm2 Ao V2 VTI: 71.8 cm SUKHJINDER(V,D): 0.90 cm2 sev ratio: 0.30 SUKHJINDER indexed to BSA (cm^2/m^2): 0.55 MV E max viral: 100.7 cm/sec PA V2 max: 111.3 cm/sec MV A max viral: 100.3 cm/sec PA V2 mean: 75.6 cm/sec MV E/A: 1.0 PA mean P.6 mmHg Med Peak E' Viral: 6.1 cm/sec PA pr(Accel): 49.9 mmHg E/E' med: 16.4 Lat Peak E' Viral: 7.5 cm/sec E/E' lat: 13.5 E/e' average: 14.9 MV dec time: 0.23 sec MVA(VTI): 2.2 cm2 Pulm A Revs Viral: 21.1 cm/sec MV V2 mean: 61.4 cm/sec Pulm A Revs Dur: 0.13 sec MV mean P.8 mmHg MV V2 VTI: 31.1 cm SV(LVOT): 69.1 ml Reading Physician:09:57 AM
== END ==
PROVIDERS: PCP Family Medicine; Referring Provider Family Medicine; Visit Provider Family Medicine
DX: I34.81 Nonrheumatic mitral (valve) annulus calcification (principal); I35.2 Nonrheumatic aortic (valve) stenosis with insufficiency; I10 Essential (primary) hypertension; R00.2 Palpitations; R55 Syncope and collapse
CPT/HCPCS: 93306

== ENCOUNTER → 2023-06-02 18:59 | Outpatient (CLI) | payer OTHER, SELFPAY | PROVIDERS: PCP Family Medicine; Referring Provider Family Medicine; Visit Provider Family Medicine | DX: Z23 Encounter for immunization (principal) | CPT/HCPCS: 90471; 90686 ==

== ENCOUNTER → 2023-07-20 08:41 | Outpatient (CLI) | payer OTHER, SELFPAY ==
--- NOTE | 2023-07-20 | DI.US.S_ITS ---
PROCEDURE: US CAROTID DOPPLER BI INDICATIONS: CAROTID BRUIT TECHNIQUE: Color and pulse Doppler interrogation was performed of both carotid systems, with image documentation and velocity measurements. COMPARISON: None. FINDINGS: Stenosis calculations are based on SRU (Society of Radiologists in Ultrasound) criteria. The flow velocities and the arterial waveforms are normal within both carotid arterial systems. Atherosclerotic plaque is seen on both sides. The estimated degree of internal carotid artery stenosis is less than 50%. Antegrade flow is confirmed within both vertebral arteries. IMPRESSION: No hemodynamically significant stenosis is seen. Atherosclerotic plaque is noted bilaterally. Dictated by: Vinayak Hidalgo M.D. on 07/20/2023 at 11:24 Approved by: Vinayak Hidalgo M.D. on 07/20/2023 at 11:25
== END ==
PROVIDERS: PCP Family Medicine; Referring Provider Family Medicine; Visit Provider Family Medicine
DX: I65.23 Occlusion and stenosis of bilateral carotid arteries (principal); R09.89 Other specified symptoms and signs involving the circulatory and respiratory systems
CPT/HCPCS: 93880

== ENCOUNTER → 2023-07-31 10:36 | Outpatient (CLI) | payer OTHER, SELFPAY ==
--- NOTE | 2023-07-31 | DI.RAD.S_ITS ---
PROCEDURE: XR LUMBAR SPINE 2-3V INDICATIONS: acute bilateral low back pain w/o sciatica TECHNIQUE: 3 views of the lumbar spine were acquired. COMPARISON: None. FINDINGS: Bones: 5 [id number] vertebrae are present. Mild straightening of normal lumbar lordosis. No spondylolisthesis. There is multilevel facet arthropathy, worse at L4-5 and L5-S1. Mild multilevel disc height loss with degenerative endplate changes and spurring is present. This is most pronounced at L5-S1. No vertebral body compression fractures. No suspicious bony lesions. Soft tissues: Overlying bowel gas pattern is normal. No suspicious soft tissue calcifications. Large burden of stool. Atherosclerotic vascular calcifications. IMPRESSION: Multilevel degenerative changes of the lumbar spine, most pronounced at L5-S1. Dictated by: Robert Zhong M.D. on 07/31/2023 at 11:47 Approved by: Robert Zhong M.D. on 07/31/2023 at 11:49
== END ==
PROVIDERS: PCP Family Medicine; Referring Provider Family Medicine; Visit Provider Family Medicine
DX: M47.817 Spondylosis without myelopathy or radiculopathy, lumbosacral region (principal); M47.816 Spondylosis without myelopathy or radiculopathy, lumbar region; M54.50 Low back pain, unspecified
CPT/HCPCS: 72100

== ENCOUNTER → 2023-10-17 10:48 | Outpatient (CLI) | payer OTHER, SELFPAY ==
[2023-10-17 13:45] LABS: Hemoglobin A1C% w Est Avg Glu 7.2 % (4.0-6.0)
[2023-10-17 13:47] LABS: Add Manual Diff / Slide Review NO; Basophils Absolute Auto 0 /uL (0-100); Basophils Percent Auto 0.2 % (0-2); Eosinophils Absolute Auto 100 /uL (0-450); Hematocrit 38.9 % (36-46); Hemoglobin 12.7 g/dL (12.0-16.0); Lymphocytes Absolute Auto 2100 /uL (1100-4500); Lymphocytes Percent Auto 39.3 % (25-40); Mean Corpuscular HGB Conc 32.7 % (30-36); Mean Corpuscular Volume 82.6 fL (80-100); Monocytes Absolute Auto 300 /uL (0-900); Monocytes Percent Auto 6.1 % (3-14); Neutrophils Absolute Auto 2900 /uL (1500-7000); Neutrophils Percent Auto 53.4 % (50-75); Platelet Count 242 X10^3/uL (150-400); Red Blood Cell Count 4.71 X10^6/uL (4.0-5.2); Red Cell Distribution Width 14.1 % (11.6-14.8); White Blood Cell Count 5.4 X10^3/uL (4.5-11.0)
[2023-10-17 13:56] LABS: Cholesterol 167 mg/dL (140-199); HDL Cholesterol 41 mg/dL (40-60); LDL Cholesterol Calculated 112 mg/dL (<100); Triglycerides 71 mg/dL (35-150)
== END ==
PROVIDERS: PCP Family Medicine; Referring Provider Family Medicine; Visit Provider Family Medicine
DX: E11.69 Type 2 diabetes mellitus with other specified complication (principal); Z79.4 Long term (current) use of insulin; E78.00 Pure hypercholesterolemia, unspecified; R74.01 Elevation of levels of liver transaminase levels; I10 Essential (primary) hypertension
CPT/HCPCS: 36415; 80061; 83036; 84443; 85025

== ENCOUNTER → 2024-01-09 07:13 | Outpatient (CLI) | payer OTHER, SELFPAY ==
[2024-01-09 08:47] LABS: Hemoglobin A1C% w Est Avg Glu 7.6 % (4.0-6.0)
[2024-01-09 09:18] LABS: Alanine Aminotransferase 31 IU/L (<35); Albumin 4.5 g/dL (3.5-5.0); Albumin Globulin Ratio 1.6 (1.0-2.8); Alkaline Phosphatase 62 U/L (38-126); Aspartate Aminotransferase 30 IU/L (14-36); BUN Creatinine Ratio 29.5 (6-22); Bilirubin Total 0.7 mg/dL (0.2-1.3); Blood Urea Nitrogen 18 mg/dL (7-17); Carbon Dioxide 24 mmol/L (22-32); Chloride 105 mmol/L (98-107); Cholesterol 183 mg/dL (140-199); Estimated Glomerular Filt Rate > 60 mL/min (>60); Globulin 2.8 g/dL (1.7-4.1); Glucose 158 mg/dL (80-110); HDL Cholesterol 49 mg/dL (40-60); HEMOLYSIS < 15 (0-50); LDL Cholesterol Calculated 112 mg/dL (<100); Potassium 4.4 mmol/L (3.4-5.1); Sodium 138 mmol/L (137-145); Total Protein 7.3 g/dL (6.3-8.2); Triglycerides 112 mg/dL (35-150); VLDL Cholesterol Calculated 22 mg/dL (2-30)
[2024-01-09 09:41] LABS: TSH w/ Reflex to FT4 0.75 uIU/mL (0.47-4.68)
[2024-01-09 12:17] LABS: Creatinine Urine Random 39.79 mg/dL
[2024-01-09 12:21] LABS: Microalbumin Urine Random 1.5 mg/dL (0-1.6)
== END ==
LOC: LAB 07:15
PROVIDERS: PCP Family Medicine; Referring Provider Family Medicine; Visit Provider Family Medicine
DX: I10 Essential (primary) hypertension (principal); I35.0 Nonrheumatic aortic (valve) stenosis; N95.2 Postmenopausal atrophic vaginitis; N90.4 Leukoplakia of vulva; E11.69 Type 2 diabetes mellitus with other specified complication; Z79.4 Long term (current) use of insulin; R74.01 Elevation of levels of liver transaminase levels; Z12.11 Encounter for screening for malignant neoplasm of colon; R55 Syncope and collapse; E78.2 Mixed hyperlipidemia; Z13.29 Encounter for screening for other suspected endocrine disorder
CPT/HCPCS: 36415; 80053; 80061; 82043; 82570; 83036; 84443

== ENCOUNTER → 2024-03-08 15:56 | Outpatient (CLI) | payer OTHER, SELFPAY ==
--- NOTE | 2024-03-08 | DI.RAD.S_ITS ---
PROCEDURE: XR CERVICAL SPINE 2V OR 3V INDICATIONS: other cervical disc degeneration TECHNIQUE: Three views of the cervical spine were acquired. COMPARISON: None. FINDINGS: Bones: No acute fractures or dislocations to the T1 level. Mild straightening of the normal cervical lordosis. The lateral masses of C1 appear intact on the odontoid view. No suspicious bony lesions. Multilevel disc space narrowing degenerative endplate changes. Multilevel uncovertebral joint and facet hypertrophy. Soft tissues: No prevertebral soft tissue swelling. IMPRESSION: Moderate multilevel cervical spondylosis. Approved by: Daljit Kothari M.D. on 03/08/2024 at 16:58
== END ==
PROVIDERS: PCP Family Medicine; Referring Provider Family Medicine; Visit Provider Family Medicine
DX: M50.30 Other cervical disc degeneration, unspecified cervical region (principal); M47.812 Spondylosis without myelopathy or radiculopathy, cervical region
CPT/HCPCS: 72040

== ENCOUNTER → 2024-05-24 16:16 | Outpatient (CLI) | payer OTHER, SELFPAY | PROVIDERS: PCP Student in an Organized Health Care Education/Training Program; Referring Provider Internal Medicine; Visit Provider Internal Medicine | DX: Z23 Encounter for immunization (principal) | CPT/HCPCS: 90471; 90656 ==

== ENCOUNTER → 2024-05-30 08:00 | Outpatient (CLI) | payer OTHER, SELFPAY ==
--- NOTE | 2024-05-30 | DI.ECHO.S_ITS ---
[facility] : : [address] : : [facility] : : [place], : : [place] [address] : : Phone: [phone] Echocardiogram Report + + :Name: DENISE GOMEZ Study Date: 05/30/2024 Height: 64 in : :[facility] ReadingLocation: Weight: 154 lb : : Gender: Female BSA: 1.8 m2 : :: 1960 Age: 63 yrs BP: 153/78 mmHg: :Reason For Study: AORTIC VALVE STENOSIS : :Ordering Physician: LUPIS, : :JUN Performed By: Luc Bañuelos : :Referring: JUN GUERRERO : + + Interpretation Summary 1) Normal left ventricular thickness, size, wall motion, and systolic function (EF 60-65%). 2) Normal right ventricular size and function. 3) There is moderate aortic stenosis (0.91cm2, mean gradient 18mmHg, severity ratio 0.27). 4) There is mild aortic regurgitation. 5) Compared to the Echo done 02/22/2023, no significant change. Procedure: A two-dimensional transthoracic echocardiogram with color flow and Doppler was performed. The study quality was technically good. Comparison is made with the echocardiogram of 02/22/2023. The patient was in normal sinus rhythm during the exam. Left Ventricle: The left ventricle is normal in size. There is normal left ventricular wall thickness. There is no ventricular septal defect visualized. The ejection fraction is estimated to be 60-65%. There are no focal wall motion abnormalities. Diastolic parameters suggest a relaxation abnormality of the left ventricle, consistent with probable normal filling pressures. Right Ventricle: The right ventricle is normal in size and function. Atria: The left atrial size is normal. Right atrial size is normal. There is no Doppler evidence for an atrial septal defect. Mitral Valve: The mitral valve is normal in structure and function. There is mild to moderate mitral annular calcification. There is trace mitral regurgitation. Aortic Valve: The aortic valve is trileaflet. The aortic valve is moderately calcified. There is mild to moderately reduced leaflet mobility. There is moderate aortic stenosis. The peak aortic velocity is 2.73 m/sec. The aortic valve mean gradient is 18.3 mmHg. The calculated aortic valve area is 0.82 cm2. There is mild aortic regurgitation. Tricuspid Valve: The tricuspid valve is normal in structure and function. There is trace tricuspid regurgitation. Pulmonic Valve: The pulmonic valve is normal in structure and function. There is no pulmonic valvular regurgitation. Great Vessels: The aortic root is normal size. The dimensions of the ascending aorta are normal. The pulmonary artery is normal size. The IVC is of normal diameter and collapses greater than 50% with a sniff. This suggests a low right atrial pressure of 3 mm Hg. Pericardium/ Pleura There is no pericardial effusion. There is no pleural effusion. MMode/2D Measurements & Calculations LVIDd: 4.0 cm AoV Openin.2 cm LVIDs: 2.4 cm LVOT diam: 2.1 cm IVSd: 1.1 cm Ao root diam: 2.6 cm LVPWd: 1.0 cm asc Aorta Diam: 3.6 cm LV agee. diameter/BSA (cm/m^2): 2.3 LV sys. diameter/BSA (cm/m^2): 1.4 FS: 40.0 % EPSS: 0.49 cm LA A2 area: 19.3 cm2 RA long axis: 4.3 cm LA A4 area: 17.2 cm2 RA area: 11.6 cm2 LA length (vol): 4.9 cm RA vol: 26.4 ml LA vol: 57.1 ml RA : 15.1 ml/m2 LA vol index: 32.6 ml/m2 RVD1 (basal): 2.8 cm IVC diam: 1.3 cm RVD2 (mid): 2.6 cm TAPSE: 2.2 cm Doppler Measurements & Calculations Ao V2 max: 273.0 cm/sec LVOT Max Viral: 85.7 cm/sec Ao V2 mean: 201.6 cm/sec LV V1 max P.9 mmHg Ao V2 VTI: 73.6 cm LV V1 VTI: 19.9 cm Ao max P.8 mmHg Ao mean P.3 mmHg SUKHJINDER(I,D): 0.91 cm2 AI P1/2t: 509.5 msec SUKHJINDER(V,D): 1.1 cm2 AI dec slope: 238.0 cm/sec2 SUKHJINDER indexed to BSA (cm^2/m^2): 0.52 sev ratio: 0.27 MV E max viral: 96.2 cm/sec MV dec time: 0.24 sec MV A max viral: 97.9 cm/sec MV E/A: 0.98 Med Peak E' Viral: 6.0 cm/sec E/E' med: 16.0 Lat Peak E' Viral: 5.9 cm/sec E/E' lat: 16.4 E/e' average: 16.2 PA V2 max: 94.6 cm/sec SV(LVOT): 67.1 ml PA V2 mean: 68.8 cm/sec PA mean P.1 mmHg PA pr(Accel): 32.8 mmHg Reading Physician:11:52 AM
== END ==
PROVIDERS: PCP Family Medicine; Referring Provider Family Medicine; Visit Provider Internal Medicine Cardiovascular Disease
DX: I34.81 Nonrheumatic mitral (valve) annulus calcification (principal); I35.2 Nonrheumatic aortic (valve) stenosis with insufficiency
CPT/HCPCS: 93306

== ENCOUNTER → 2024-06-18 09:00 | Outpatient (CLI) | payer OTHER, SELFPAY ==
--- NOTE | 2024-06-18 09:01 | DI.RAD.S_ITS ---
PROCEDURE: XR CHEST 2V INDICATIONS: Acute Cough TECHNIQUE: 2 views of the chest were acquired. COMPARISON: None. FINDINGS: Heart, mediastinum and pulmonary vascular: Heart is normal in size and configuration. Mediastinum is unremarkable. Pulmonary vascular is normal. Lungs: Clear Pleural spaces: Normal-no effusions or pneumothorax. Bones and soft tissues: Normal IMPRESSION: Normal chest. Dictated by: Daniel Madrigal M.D. on 06/19/2024 at 15:58 Approved by: Daniel Madrigal M.D. on 06/19/2024 at 15:59
== END ==
PROVIDERS: PCP Student in an Organized Health Care Education/Training Program; Referring Provider Student in an Organized Health Care Education/Training Program; Visit Provider Student in an Organized Health Care Education/Training Program
DX: R05.1 Acute cough (principal)
CPT/HCPCS: 71046

== ENCOUNTER → 2024-09-02 08:46 | Outpatient (CLI) | payer OTHER, SELFPAY ==
[2024-09-02 10:05] LABS: Alanine Aminotransferase 30 IU/L (<35); Albumin 4.7 g/dL (3.5-5.0); Albumin Globulin Ratio 1.7 (1.0-2.8); Alkaline Phosphatase 57 U/L (38-126); Aspartate Aminotransferase 31 IU/L (14-36); BUN Creatinine Ratio 26.7 (6-22); Bilirubin Total 0.6 mg/dL (0.2-1.3); Blood Urea Nitrogen 16 mg/dL (7-17); Calcium 9.4 mg/dL (8.4-10.2); Carbon Dioxide 27 mmol/L (22-32); Chloride 106 mmol/L (98-107); Cholesterol 163 mg/dL (140-199); Estimated Glomerular Filt Rate > 60 mL/min (>60); Globulin 2.7 g/dL (1.7-4.1); Glucose 88 mg/dL (80-110); HDL Cholesterol 48 mg/dL (40-60); HEMOLYSIS < 15 (0-50); LDL Cholesterol Calculated 100 mg/dL (<100); Potassium 4.1 mmol/L (3.4-5.1); Sodium 140 mmol/L (137-145); Total Protein 7.4 g/dL (6.3-8.2); Triglycerides 74 mg/dL (35-150)
== END ==
PROVIDERS: PCP Family Medicine; Referring Provider Family Medicine; Visit Provider Family Medicine
DX: E11.69 Type 2 diabetes mellitus with other specified complication (principal); E11.59 Type 2 diabetes mellitus with other circulatory complications; E11.620 Type 2 diabetes mellitus with diabetic dermatitis; I15.2 Hypertension secondary to endocrine disorders; E78.5 Hyperlipidemia, unspecified; I35.0 Nonrheumatic aortic (valve) stenosis; N95.2 Postmenopausal atrophic vaginitis; J30.89 Other allergic rhinitis; Z79.4 Long term (current) use of insulin
CPT/HCPCS: 36415; 80053; 80061; 83036

== ENCOUNTER → 2024-10-24 07:32 | Outpatient (CLI) | payer OTHER, SELFPAY ==
--- NOTE | 2024-10-24 07:34 | DI.US.S_ITS ---
PROCEDURE: US ABDOMEN LIMITED INDICATIONS: EPIGASTRIC PAIN/RUQ PAIN TECHNIQUE: Real-time scanning was performed of the abdominal and retroperitoneal organs, with image documentation. COMPARISON: [facility], US, US ABDOMEN COMPLETE, 07/13/2022, 7:43. FINDINGS: Liver: Liver is normal in size and homogeneous in echotexture. Gallbladder: Small gallstones measuring up to 3 mm. No wall thickening. No pericholecystic edema. Negative sonographic Perez's sign. Biliary ducts: Intrahepatic bile ducts are non-dilated. Extrahepatic bile duct caliber measures 3.1 mm. Normal is 6-7 mm or less in diameter, or 10 mm or less post-cholecystectomy. Pancreas: Visualized portions of the pancreas are sonographically normal. Miscellaneous: No free abdominal fluid. IMPRESSION: Cholelithiasis without sonographic evidence of acute cholecystitis. Dictated by: Robert Zhong M.D. on 10/24/2024 at 9:38 Approved by: Robert Zhong M.D. on 10/24/2024 at 9:39
== END ==
PROVIDERS: PCP Family Medicine; Referring Provider Family Medicine; Visit Provider Family Medicine
DX: R10.13 Epigastric pain (principal); R10.11 Right upper quadrant pain; K80.20 Calculus of gallbladder without cholecystitis without obstruction
CPT/HCPCS: 76705

== ENCOUNTER → 2024-12-28 07:40 | Outpatient (CLI) | payer OTHER, SELFPAY ==
[2024-12-28 08:47] LABS: Add Manual Diff / Slide Review NO; Basophils Absolute Auto 0 /uL (0-100); Basophils Percent Auto 0.3 % (0-2); Eosinophils Absolute Auto 100 /uL (0-450); Eosinophils Percent Auto 1.8 % (2-4); Hematocrit 41.3 % (36-46); Hemoglobin 13.3 g/dL (12.0-16.0); Lymphocytes Absolute Auto 2400 /uL (1100-4500); Lymphocytes Percent Auto 36.5 % (25-40); Mean Corpuscular HGB Conc 32.2 % (30-36); Mean Corpuscular Hemoglobin 27.2 PG (26-34); Mean Corpuscular Volume 84.3 fL (80-100); Monocytes Absolute Auto 500 /uL (0-900); Monocytes Percent Auto 7.4 % (3-14); Neutrophils Absolute Auto 3500 /uL (1500-7000); Platelet Count 218 X10^3/uL (150-400); Red Cell Distribution Width 13.5 % (11.6-14.8); White Blood Cell Count 6.5 X10^3/uL (4.5-11.0)
[2024-12-28 09:01] LABS: Alanine Aminotransferase 29 IU/L (<35); Albumin 4.7 g/dL (3.5-5.0); Albumin Globulin Ratio 1.6 (1.0-2.8); Alkaline Phosphatase 50 U/L (38-126); Aspartate Aminotransferase 32 IU/L (14-36); BUN Creatinine Ratio 33.3 (6-22); Bilirubin Total 0.6 mg/dL (0.2-1.3); Blood Urea Nitrogen 20 mg/dL (7-17); Calcium 9.4 mg/dL (8.4-10.2); Carbon Dioxide 24 mmol/L (22-32); Chloride 105 mmol/L (98-107); Cholesterol 144 mg/dL (140-199); Creatine Kinase 284 U/L (30-135); Estimated Glomerular Filt Rate > 60 mL/min (>60); Glucose 94 mg/dL (70-99); HDL Cholesterol 45 mg/dL (40-60); HEMOLYSIS < 15 (0-50); LDL Cholesterol Calculated 78 mg/dL (<100); Potassium 4.3 mmol/L (3.4-5.1); Sodium 139 mmol/L (137-145); Total Protein 7.7 g/dL (6.3-8.2); Triglycerides 107 mg/dL (35-150)
[2024-12-28 09:32] LABS: TSH w/ Reflex to FT4 1.18 uIU/mL (0.47-4.68)
== END ==
PROVIDERS: PCP Family Medicine; Referring Provider Family Medicine; Visit Provider Family Medicine
DX: M79.10 Myalgia, unspecified site (principal); R74.8 Abnormal levels of other serum enzymes; E11.69 Type 2 diabetes mellitus with other specified complication; Z79.4 Long term (current) use of insulin; E11.59 Type 2 diabetes mellitus with other circulatory complications; I15.2 Hypertension secondary to endocrine disorders; E78.5 Hyperlipidemia, unspecified; R74.01 Elevation of levels of liver transaminase levels; R09.89 Other specified symptoms and signs involving the circulatory and respiratory systems; L30.9 Dermatitis, unspecified
CPT/HCPCS: 80053; 80061; 82550; 83036; 84443; 85025

== ENCOUNTER 2025-01-01 07:20 | Day surgery (SDC) | payer OTHER, SELFPAY ==
[2024-12-25 12:41] VITALS: BMI 26.1
[2025-01-01] VITALS (10 sets, daily range): BP systolic 116–159; BP diastolic 67–77; PULSE 71–84; RESP 11–16; TEMP 36.3–36.5; O2SAT 93–100; BMI 25.9
--- NOTE | 2025-01-01 | PATH_ITS ---
[facility] Accession Number: [id number] No. of containers..01 Tissue . 01 Material submitted: . gallbladder - GALLBLADDER . 01 Diagnosis: GALLBLADDER, CHOLECYSTECTOMY: Mild chronic cholecystitis. [facility] 01/06/2025 0934 Local . 01 Electronically signed: . Clarissa Paul DO, Pathologist NPI- [id number] . 01 Gross description: . Received in formalin with two identifiers and gallbladder, is an intact gallbladder, 9.7 x 2.9 x 2.4 cm with an unremarkable external surface. The cystic duct margin is inked blue and no pericystic lymph node is identified. The lumen contains dark green viscous bile with no calculi identified in the lumen or the container. The mucosa is green and velvety, and an area of luminal narrowing is located at the proximal portion of the neck down to approximately 0.4 cm in diameter. No polyps or lesions are identified. The nunez averages 0.3 cm thick, and installation service representative sections to include the cystic duct margin and full-thickness sections are submitted in A1. ([id number]) /MRV 01/02/2025 1838 Local . 01 Pathologist provided ICD-10: K81.1 . 01 CPT . 19209 Specimen Comment: A courtesy copy of this report has been sent to [phone] Performed at: [address] [address], [place], [place] [id number] MD Rc Patterson MD Phone: [phone]
[2025-01-01] MEDS: ACETAMINOPHEN IV 1,000 MG/100 ML VIAL 400 MG IV (07:57)
[2025-01-01] MEDS: LACTATED RINGERS 1,000 ML 42 ML IV ×2 (07:57→12:11)
[2025-01-01] MEDS: SCOPOLAMINE 1 PATCH TOP (08:21)
--- NOTE | 2025-01-01 10:09 | PM.PREOP ---
Pre-operative Note COVID-19 COVID-19 status: Not tested Interval Note History & Physical reviewed/Exam performed by Physician: Yes Changes to H&P: No ASA Class (for procedural sedation): II
[2025-01-01] MEDS: CEFAZOLIN 2 GM/100 ML PREMIX 100 ML IV (10:27)
--- NOTE | 2025-01-01 10:42 | SUR.OPER ---
Supine on padded OR bed, head on pillow, arms secured on padded arm boards at <90 degrees abduction, legs uncrossed, safety belt at thigh, tape over blanket over lower legs.
[2025-01-01] MEDS: BUPIVACAINE 0.5% W/ EPI (PF) 30 ML VIAL INJ (10:48)
--- NOTE | 2025-01-01 11:12 | P.OP_ITS ---
Operative Date/Time/Diagnoses Date of procedure: 01/01/25 Time of procedure: 11:12 Pre-op diagnosis: Symptomatic cholelithiasis Post-op diagnosis: same Procedure & Clinicians Procedure: Laparoscopic cholecystectomy Same procedure as scheduled: Yes Surgeon: Niraj Harkins Chief Controller: Savage Fernandez Anesthesia Type: General Operative Notes Findings: Not applicable Estimated Blood Loss (mL): 20 Procedure in detail: The patient was given preoperative antibiotics. The patient was brought to the operating room and placed on the table in the supine position. General end otracheal anesthesia was induced. The abdomen was prepped and draped. A time- out was performed. We made a 1 cm infraumbilical incision. We dissected down to the base of the umbilical stalk using cautery. We grasped the umbilical stalk with a Delta clamp to elevate the abdominal wall. We scored the fascia in the midline with cautery. We pierced the peritoneum with a Peon clamp. The Lucille port was placed and the abdomen was insufflated to 15 mmHg. A 5 mm 30 degree laparoscopic was inserted. There was no evidence of any injury from the entry. Next, we placed 5 mm ports in the subxiphoid position and right upper quadrant at the midclavicular line and anterior axillary line. The patient was then positioned in reverse Trendelenburg and the table was tilted to the left. The gallbladder was grasped at the dome and retracted cephalad. There were some adhesions of omentum and small bowel to the underside of the right liver which were carefully dissected free with the hook cautery using cut function. We then dissected the cystic structures with a combination of hook cautery and blunt dissection. We obtained a critical view. We placed clips on the cystic duct and artery and divided the cystic duct and artery sharply between the clips. The gallbladder was then dissected off the liver and placed in a specimen retrieval bag. We irrigated the right upper quadrant and all the aspirate returned clear. We then removed the 5 mm ports under direct vision we removed the Lucille port. We then injected some local into the fascia and closed the fascia with 2 interrupted 0 Vicryl sutures. The skin incisions were closed with 4-0 Monocryl and Steri-Strips were applied. Band-Aids were applied over the Steri-Strips. EBL: 20 mL Specimen: Gallbladder and contents Savage MARTINEZ provided assistance with exposure, retraction and closure of incisions. Complications: none Post-operative Condition: stable Disposition: PACU
[2025-01-01] MEDS: TIZANIDINE 4 MG TABLET PO (12:26)
[2025-01-01] MEDS: fentaNYL 100 MCG/2 ML INJ 25 MCG IV ×3 (12:27→12:40)
--- NOTE | 2025-01-01 13:27 | SUR.PHASEII ---
Patient's implanted glucometer showed glucose of 113.
[2025-01-01] MEDS: ACETAMINOPHEN 325 MG TABLET 975 MG PO (14:26)
--- NOTE | 2025-01-01 14:41 | SUR.PHASEII ---
Discussed hydrocodone allergy with Dr. Harkins. Patient to take Ibuproren and Tylenol per MD, patient notified.
== END 2025-01-01 14:34 | disposition home or self-care (01) ==
PROVIDERS: PCP Family Medicine; Referring Provider Surgery; Visit Provider Surgery
PROC: 0FT44ZZ Resection of Gallbladder, Percutaneous Endoscopic Approach (ICD-10-PCS; CPT 47562; principal; 2025-01-01 09:30)
DX: K81.1 Chronic cholecystitis (principal)
CPT/HCPCS: 47562; J0131; J0690; J1100; J1885; J2405; J2704; J3010

== ENCOUNTER → 2025-08-01 07:38 | Outpatient (CLI) | payer OTHER, SELFPAY ==
[2025-08-01 08:17] LABS: Hemoglobin A1C% w Est Avg Glu 6.9 % (4.0-6.0)
[2025-08-01 08:26] LABS: Blood Urea Nitrogen 21 mg/dL (7-17); Calcium 9.6 mg/dL (8.4-10.2); Carbon Dioxide 26 mmol/L (22-32); Chloride 104 mmol/L (98-107); Cholesterol 130 mg/dL (140-199); Estimated Glomerular Filt Rate > 60 mL/min (>60); Glucose 111 mg/dL (70-99); HDL Cholesterol 49 mg/dL (40-60); HEMOLYSIS < 15 (0-50); Potassium 4.0 mmol/L (3.4-5.1); Sodium 140 mmol/L (137-145); Triglycerides 72 mg/dL (35-150)
[2025-08-01 10:16] LABS: Microalbumi Creatinin Ratio Ur 43.0 ug/mg CR (<30)
== END ==
PROVIDERS: PCP Student in an Organized Health Care Education/Training Program; Referring Provider Student in an Organized Health Care Education/Training Program; Visit Provider Internal Medicine Endocrinology, Diabetes & Metabolism
DX: E11.65 Type 2 diabetes mellitus with hyperglycemia (principal); Z79.4 Long term (current) use of insulin
CPT/HCPCS: 36415; 80048; 80061; 82043; 82570; 83036